=== PATIENT | male | born 1935 | race Caucasian/White ===

== ENCOUNTER 2016-07-27 07:30 | Outpatient (CLI) | payer MEDICARE, OTHER | END 2016-07-27 07:31 | disposition home or self-care (01) | DX: E78.5 Hyperlipidemia, unspecified (principal); I10 Essential (primary) hypertension; Z79.899 Other long term (current) drug therapy; Z85.46 Personal history of malignant neoplasm of prostate ==

== ENCOUNTER 2016-11-23 13:50 | Outpatient (CLI) | payer MEDICARE, OTHER | END 2016-11-23 13:51 | disposition home or self-care (01) | LOC: LAB.WCP 13:50 | PROVIDERS: ATTEND Urology | DX: Z85.46 Personal history of malignant neoplasm of prostate (principal) | CPT/HCPCS: 36415; 84153 ==

== ENCOUNTER 2016-12-18 07:43 | Outpatient (CLI) | payer MEDICARE, OTHER ==
[2016-12-18 08:30] LABS: CHOL/HDL RATIO 3.2 (<5.0); CHOLESTEROL 155 mg/dL; HDL CHOLESTEROL 49 mg/dL; LDL/HDL RATIO 1.7 (<3.6); TRIGLYCERIDES 122 mg/dL; VLDL CHOLESTEROL 24 mg/dL
== END 2016-12-18 07:44 | disposition home or self-care (01) ==
LOC: LAB 07:43
PROVIDERS: ATTEND Family Medicine
DX: E78.5 Hyperlipidemia, unspecified (principal)
CPT/HCPCS: 36415; 80061

== ENCOUNTER 2017-05-30 09:37 | Outpatient (CLI) | payer MEDICARE, OTHER ==
[2017-05-30 14:17] LABS: ALBUMIN 3.8 g/dL (3.2-5.5); ALBUMIN/GLOBULIN RATIO 1.1 (1.0-2.2); BILIRUBIN,TOTAL 0.6 mg/dL (0.2-1.0); CALCIUM 9.1 mg/dL (8.5-10.3); CREATININE 0.8 mg/dL (0.6-1.2); TOTAL PROTEIN 7.3 g/dL (6.7-8.2)
[2017-05-30 14:43] LABS: BASOPHILS % (AUTO) 0.6 %; EOSINOPHILS # (AUTO) 0.2 10^3/uL (0.0-0.7); EOSINOPHILS % (AUTO) 2.9 %; HGB - HEMOGLOBIN 13.3 g/dL (14.0-18.0); LYMPHOCYTES # (AUTO) 1.5 10^3/uL (1.5-3.5); LYMPHOCYTES % (AUTO) 20.1 %; MEAN CORPUSCULAR HEMOGLOBIN 30.3 pg (27.0-31.0); MEAN CORPUSCULAR HGB CONC 34.5 g/dL (32.0-36.0); MEAN CORPUSCULAR VOLUME 87.8 fL (80.0-94.0); MEAN PLATELET VOLUME 7.8 fL (7.4-11.4); MONOCYTES # (AUTO) 0.6 10^3/uL (0.0-1.0); MONOCYTES % (AUTO) 7.5 %; NEUTROPHILS # (AUTO) 5.3 10^3/uL (1.5-6.6); NEUTROPHILS % (AUTO) 68.9 %; PLT - PLATELET COUNT 282 10^3/uL (130-450); RED CELL DISTRIBUTION WIDTH 13.2 % (12.0-15.0); WHITE BLOOD COUNT 7.6 x10^3/uL (4.8-10.8)
== END 2017-05-30 09:38 | disposition home or self-care (01) ==
LOC: LAB.WCP 09:37
PROVIDERS: ATTEND Family Medicine
DX: R53.83 Other fatigue (principal); R63.4 Abnormal weight loss; I10 Essential (primary) hypertension; Z85.46 Personal history of malignant neoplasm of prostate
CPT/HCPCS: 36415; 80053; 82150; 83690; 83735; 84153; 84443; 85025

== ENCOUNTER 2017-06-02 07:18 | Outpatient (CLI) | payer MEDICARE, OTHER ==
[2017-06-02 14:55] LABS: HB2 TOTAL 14.5 g/dL; HEMOGLOBIN A1C 0.69 g/dL; HEMOGLOBIN A1C % 6.5 % (4.6-6.2)
== END 2017-06-02 07:19 ==
LOC: LAB.WCP 07:18
PROVIDERS: ATTEND Family Medicine
DX: R73.01 Impaired fasting glucose (principal)
CPT/HCPCS: 36415; 82947; 83036

== ENCOUNTER 2017-06-09 14:23 | Outpatient (CLI) | payer MEDICARE, OTHER ==
[2017-06-09] MEDS ORDERED: IOPAMIDOL-300 100 ML VIAL ONE (14:25)
[2017-06-09] MEDS ORDERED: IOPAMIDOL-300 50 ML VIAL ONE (14:25)
[2017-06-09] MEDS ORDERED: IOPAMIDOL-300 50 ML VIAL PO ONE (15:40)
[2017-06-09] MEDS ORDERED: IOPAMIDOL-300 100 ML VIAL IVP ONE (15:40)
--- NOTE | 2017-06-10 12:05 | CT Report ---
CT CHEST WITH CONTRAST: 06/09/2017 CLINICAL INDICATION: Weight loss, nausea. TECHNIQUE: Axial CT images of the chest were obtained with 100 mL Isovue 300 intravenously. COMPARISON: No previous chest CT is available for comparison. FINDINGS: The heart and great vessels demonstrate atherosclerotic calcifications. There is an anterior mediastinal mass, measuring 7.5 x 7.0 cm, suspicious for neoplasm. No internal calcifications are seen to suggest teratoma. There is a pulmonary nodule in the left upper lung, which appears to arise from the major fissure, with spiculated margins measuring 3.3 x 2.0 cm, suspicious for either primary lung cancer or metastatic disease. Left basilar atelectasis is present. No pleural effusion or pneumothorax is seen. Mild emphysema is noted. Osseous structures demonstrate degenerative changes. IMPRESSION: A 3.3 CM LEFT UPPER LUNG NODULE, WITH A 7.5 CM ANTERIOR MEDIASTINAL MASS. IT IS UNCERTAIN WHICH OF THESE REPRESENTS THE PRIMARY LESION. CT DOSE REDUCTION STATEMENT In accordance with CT protocol optimization, one or more of the following dose reduction techniques were utilized for this exam: Automated exposure control, adjustment of mA and/or KV based on patient size, or use of iterative reconstructive technique. TD: 06/10/2017 12:04
--- NOTE | 2017-06-10 12:13 | CT Report ---
CT ABDOMEN AND PELVIS WITH CONTRAST: 06/09/2017 CLINICAL INDICATION: Weight loss, nausea. TECHNIQUE: Axial CT images of the abdomen and pelvis were obtained with 100 mL Isovue 300 intravenously as well as oral contrast. COMPARISON: 12/11/2015. FINDINGS: The liver again demonstrates multiple cysts. The spleen, pancreas, kidneys and adrenal glands are unremarkable. The gallbladder is not dilated. No bowel dilatation, free gas, or free fluid is present. No abdominal adenopathy is seen. PELVIS: The pelvic organs appear unremarkable. No pelvic adenopathy or free fluid is present. Osseous structures demonstrate degenerative changes. IMPRESSION: NO EVIDENT ETIOLOGY FOR PATIENT'S WEIGHT LOSS AND NAUSEA. PLEASE SEE CHEST CT REPORT OF THE SAME DAY. CT DOSE REDUCTION STATEMENT In accordance with CT protocol optimization, one or more of the following dose reduction techniques were utilized for this exam: automated exposure control, adjustment of mA and/or KV based on patient size, or use of iterative reconstructive technique. TD: 06/10/2017 12:13
== END 2017-06-09 14:24 | disposition home or self-care (01) ==
LOC: DI 14:23
PROVIDERS: ATTEND Surgery
DX: R91.1 Solitary pulmonary nodule (principal); R91.8 Other nonspecific abnormal finding of lung field
CPT/HCPCS: 71260; 74177; Q9967

== ENCOUNTER 2017-07-12 07:27 | Outpatient (CLI) | payer MEDICARE, OTHER ==
[2017-07-12] MEDS ORDERED: IOPAMIDOL-300 100 ML VIAL ONE (07:59)
[2017-07-12 08:03] LABS: CREATININE 0.8 mg/dL (0.6-1.2)
--- NOTE | 2017-07-12 11:30 | CT Report ---
CT BRAIN WITH AND WITHOUT CONTRAST: 07/12/2017 CLINICAL INDICATION: Lung cancer. TECHNIQUE: Axial CT images of the brain were obtained prior to and following 80 mL Isovue 300 intravenously. COMPARISON: No previous CT is available for comparison. FINDINGS: The ventricles and sulci are normal in size, shape and configuration. The basilar cisterns are patent. There is a 4 mm enhancing nodule arising from the left frontal dura, likely representing a tiny meningioma. No abnormal intraaxial enhancement is seen. No mass lesion or midline shift is present. The visualized orbital contents and paranasal sinuses are unremarkable. 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 NO EVIDENCE OF INTRAAXIAL METASTATIC DISEASE. CT DOSE REDUCTION STATEMENT In accordance with CT protocol optimization, one or more of the following dose reduction techniques were utilized for this exam: automated exposure control, adjustment of mA and/or KV based on patient size, or use of iterative reconstructive technique. TD: 07/12/2017 11:29
[2017-07-12] MEDS ORDERED: IOPAMIDOL-300 100 ML VIAL IVP ONE (12:45)
== END 2017-07-12 07:28 | disposition home or self-care (01) ==
LOC: LAB 07:27
PROVIDERS: ATTEND Surgery
DX: C34.90 Malignant neoplasm of unspecified part of unspecified bronchus or lung (principal)
CPT/HCPCS: 36415; 70470; 82565; Q9967

== ENCOUNTER 2017-08-02 15:34 | Emergency (ER) | payer MEDICARE, OTHER ==
--- NOTE | 2017-08-02 16:11 | ED Physician Documentation ---
PD HPI ABD PAIN - Stated complaint Stated Complaint: ABD PX - Chief complaint Chief Complaint: General - History obtained from History obtained from: Patient - History of Present Illness Timing - onset: Yesterday (cramping intermediate pain.), How many days ago (5 days since last BM. He had taken some stool lacative and has some weeping stool out of the rectum with still feeling of need to use bathroom. He had only gotten small hard stools out of case.) Timing - details: Intermittant, Waxing and waning Quality: Cramping, Aching Location: Suprapubic, Other (rectal area fullness) Radiation: Lower back Improved by: BM (but only smallest hard stools out the past few days.) Associated symptoms: Nausea, Diarrhea (small amounts of watery coming out around presumed impaction on CT.), Constipation. No: Fever, Vomiting Similar symptoms before: Diagnosis (constipation but is not regular problem for him.) Review of Systems Constitutional: denies: Fever, Chills Nose: denies: Rhinorrhea / runny nose, Congestion Cardiac: denies: Chest pain / pressure, Palpitations Respiratory: denies: Dyspnea, Cough : reports: Unable to Void (for the past 12 hours, only little trickles and feels bladder fullness.) PD PAST MEDICAL HISTORY - Past Medical History Cardiovascular: Hypertension, High cholesterol Respiratory: None Endocrine/Autoimmune: None GI: GERD : None HEENT: None Psych: None Musculoskeletal: None Derm: None - Past Surgical History General: Gastric surgery, Colonoscopy, EGD, Other /SKIP TRACER: Other HEENT: Tonsil/Adenoidectomy - Present Medications Home Medications: Ambulatory Orders Medication Instructions Recorded Confirmed Lisinopril 20 mg PO DAILY 05/23/14 08/03/17 Atorvastatin [Lipitor] 1 tab PO DAILY 08/02/17 08/03/17 Ondansetron Odt [Zofran Odt] 1 tab SL Q6HR PRN 08/02/17 08/03/17 Aspirin [Adult Low Dose Aspirin EC] 1 tab PO DAILY 08/03/17 08/03/17 Chaga 420 mg PO DAILY 08/03/17 08/03/17 Dandelion Root 525 mg PO DAILY 08/03/17 08/03/17 Doxylamine Succinate [[place]] 1 tab PO DAILY 08/03/17 08/03/17 Ibuprofen 200 mg PO PRN PRN 08/03/17 08/03/17 Multivitamin [Multiple Vitamins] 1 tab PO DAILY 08/03/17 08/03/17 Psyllium Husk [Fiber] 1 cap PO DAILY 08/03/17 08/03/17 - Allergies Allergies/Adverse Reactions: Allergies Allergy/AdvReac Type Severity Reaction Status Date / Time No Known Drug Allergies Allergy Verified 08/02/17 15:42 - Family History Family history: reports: Non contributory - Immunizations Immunizations are current?: Yes PD ED PE NORMAL - Vitals Vital signs reviewed: Yes - General General: Alert and oriented X 3, No acute distress, Well developed/nourished - HEENT HEENT: Pharynx benign - Neck Neck: Supple, no meningeal sign, No adenopathy - Cardiac Cardiac: RRR, No murmur - Respiratory Respiratory: Clear bilaterally - Abdomen Abdomen: Normal bowel sounds, Soft, Non distended, No organomegaly, Other ( tender lower abd nd fullness suprapubic area. ) - Male Male : Other (normal genitalia. ) - Rectal Rectal: Other (some impacted stool broken up digitally) - Back Back: No CVA TTP Results - Vitals Vitals: Oxygen O2 Source Room air PD MEDICAL DECISION MAKING - ED course Complexity details: re-evaluated patient, considered differential (seems to be constipation and urinary retention related, feeling better with those addressed. ), d/w patient Departure - Departure Disposition: 01 Home, Self Care Clinical Impression: Constipation, Acute urinary retention Condition: Stable Record reviewed to determine appropriate education?: Yes Instructions: ED Constipation, ED Catheter Care Rogers Follow-Up: Evan Matos MD [Primary Care Provider] - Comments: Drink lots of fluids. Usual medications. [place] [facility] [place]. Keep the Rogers catheter in until then. See if they want to remove it tomorrow or other recommendations. The urinary retention may be related to the constipation and so as the constipation is resolving the urination may improve most likely. Discharge Date/Time: 08/02/17 19:29
[2017-08-02] MEDS ORDERED: MINERAL OIL ENEMA 133 ML BOTTLE RC STA (16:44)
[2017-08-02] MEDS ORDERED: ACETAMINOPHEN 325 MG TABLET PO STA (16:51)
[2017-08-02] MEDS ORDERED: SALINE ENEMA 133 ML BOTTLE RC STA (18:19)
[2017-08-02 18:50] VITALS: BP 134/80
== END 2017-08-02 19:29 | disposition home or self-care (01) ==
LOC: ED 15:34
DX: K59.00 Constipation, unspecified (principal); R33.9 Retention of urine, unspecified; I10 Essential (primary) hypertension; Z79.82 Long term (current) use of aspirin
CPT/HCPCS: 51702; 99282; 99283; A9270

== ENCOUNTER 2017-09-06 08:44 | Day surgery (SDC) | payer MEDICARE, OTHER ==
[~2017-09-06 08:44] MED LIST: ceFAZolin 2 GM/50 ML 2 GM/50 ML BAG IV ONE
[2017-09-06] MEDS ORDERED: LACTATED RINGERS 1,000 ML IV ONE (09:29)
[2017-09-06] MEDS ORDERED: BUPIVACAINE 0.5% PF 30 ML VIAL INFIL ONE ×2 (11:08)
[2017-09-06] MEDS ORDERED: MIDAZOLAM 2 MG/2 ML VIAL IVP ONE (11:11)
[2017-09-06] MEDS ORDERED: KETAMINE 500 MG/10 ML VIAL IVP ONE (11:11)
[2017-09-06] MEDS ORDERED: GLYCOPYRROLATE 1 MG/5 ML VIAL IVP ONE (11:11)
[2017-09-06] MEDS ORDERED: PROPOFOL 200 MG/20 ML VIAL IVP ONE (11:11)
--- NOTE | 2017-09-06 11:59 | OPERATIVE REPORT ---
Operative Report - General Procedure Date: 09/06/17 Planned Procedure: Port-A-Cath placement Pre-Op Diagnosis: Stage IV lung cancer Procedure Performed: RIGHT subclavian Port-A-Cath placement Post Op Diagnosis: Same - Procedure Note Primary Surgeon: Jay Alexandra MD Anesthesia Provider: Javier Alas CRNA Anesthesia Technique: Local (12 mL 1/2% marcaine), MAC IV Fluids (mL): 900 Estimated Blood Loss (mL): 1 Complications: None. - Other Other Information/Narrative: OPERATIVE DESCRIPTION/REPORT: After verbal and written informed consent was obtained detailing the risks of infection, bleeding requiring transfusion with its risks, nerve injury, and , and after I met with the patient confirming the surgery and the site of the surgery, the patient was brought to the operative suite and placed supine on the operating table. Great care was taken to avoid pressure points to prevent pressure necrosis or nerve injury. Monitoring devices were applied along with TEDs and pneumatic compressive stockings (to prevent DVT). The patient received preoperative antibiotics for surgical prophylaxis. Javier Alas CRNA sedated and anesthetized the patient for the entire procedure. The patient was prepped and draped in the usual sterile manner. A "time in" then confirmed that the patient was identified with 3 identifiers (name, date and medical record number), the history and physical was in the chart, the signed consent confirming the procedure was in the chart, the patient was in the correct position, the aforementioned prophylactic measures were in place or given, we had the correct personnel and equipment to complete the procedure and that anesthesia, surgery and nursing were given an opportunity to express any concerns. With the agreement of everyone in the room, we proceeded with the operation. After the subclavian region was anesthetized using % marcaine and the patient placed in Trendelenberg position, an Angiodynamics Smartport kit was opened. The finder needle was inserted into the subclavian vein taking great care to place it just under the clavicle in order to minimize the risk of pneumothorax. When good venous blood return was obtained, the wire was placed through the needle and into the vein without difficulty. Fluoroscopy and cardiac irritability confirmed that the catheter was correctly going down towards the heart. Below and lateral to the needle insertion site, the area was anesthetized again using % marcaine and a transverse incision was made just large enough to accommodate the port. This incision was taken down to the fascia using sharp dissection and the area for the port was created using blunt downward dissection. Meticulous hemostasis was obtained using Bovie electrocautery. A knife was inserted along the wire to widen the insertion site and this was further dilated using a Rachael. The port was flushed with heparinized saline and placed in the pouch and the catheter was then passed to the needle opening using the passer. The catheter was then measured against the patients anterior chest and cut so that the tip would lie 2 cm below the manubrial-sternal junction. The port was secured to the fascia using a 3-0 Prolene on the side of the opening of the port. The catheter was then wiped and wrapped with a heparinized soaked 4x4. The dilator and sheath were then carefully inserted over the wire and the dilator and wire withdrawn. The catheter was then inserted into the sheath and the sheath was broken away from the catheter leaving the catheter in place in the vein. Fluoroscopy confirmed placement of the catheter tip in the right atrium/supracardiac vena cava without pneumothorax. Using a Hueber needle the port was accessed and good blood return as well as easy flush was noted. The subcutaneous tissue was approximated using 3-0 Vicryl and the skin incisions were approximated with 4-0 Monocryl in a subcuticular fashion. The skin prep was washed off and prepped with benzoin. Steristrips were applied. At this point a time out was performed that confirmed that all the counts were correct, the procedure that was performed, the blood loss, the IV fluids administered, and the patients condition. A dressing was placed on the wound. Having tolerated the procedure well, the patient was taken to short stay in good and stable condition. An upright portable chest X-ray was obtained and read by me as no pneumothorax and good placement of the Port-A-Cath in the right atrium. The patient was instructed that the Port-A-Cath could be used immediately.
[2017-09-06 12:08] VITALS: BP 138/77
--- NOTE | 2017-09-06 12:10 | XRAY Report ---
FLUOROSCOPIC ASSISTANCE: 09/06/2017 FINDINGS/IMPRESSION: Fluoroscopic assistance is provided for port placement. 0.4 minutes of fluoroscopy time are used. No images are obtained. TD: 09/06/2017 11:51
--- NOTE | 2017-09-06 13:02 | XRAY Report ---
PORTABLE CHEST: 09/06/2017 HISTORY: Line placement. COMPARISON: Chest CT 06/09/2017 and chest x-ray 01/14/2017. FINDINGS: There is a right Port-A-Cath with its tip at the cavoatrial junction. No pneumothorax is seen. Mediastinal/left hilar mass, as before. Hypoventilatory changes at the lung bases. No effusions. IMPRESSION: NO UNEXPECTED FINDING STATUS POST PORT-A-CATH PLACEMENT. TD: 09/06/2017 12:22
== END 2017-09-06 08:45 | disposition home or self-care (01) ==
LOC: SDS 08:44
PROVIDERS: ATTEND Surgery
PROC: 02H633Z Insertion of Infusion Device into Right Atrium, Percutaneous Approach (ICD-10-PCS; 2017-09-06)
PROC: 0JH60WZ Insertion of Totally Implantable Vascular Access Device into Chest Subcutaneous Tissue and Fascia, Open Approach (ICD-10-PCS; principal; 2017-09-06 09:45)
DX: C34.90 Malignant neoplasm of unspecified part of unspecified bronchus or lung (principal); I10 Essential (primary) hypertension; K21.9 Gastro-esophageal reflux disease without esophagitis; E78.5 Hyperlipidemia, unspecified; M10.9 Gout, unspecified; M19.90 Unspecified osteoarthritis, unspecified site
CPT/HCPCS: 36561; C1788; J0690; J7120; 71045

== ENCOUNTER 2017-10-25 08:40 | Outpatient (CLI) | payer MEDICARE, OTHER | END 2017-10-25 08:41 | LOC: LAB.WCP 08:40 | PROVIDERS: ATTEND Urology | DX: Z85.46 Personal history of malignant neoplasm of prostate (principal); Z90.79 Acquired absence of other genital organ(s) | CPT/HCPCS: 36415; 84153 ==

== ENCOUNTER 2018-02-16 07:32 | Day surgery (SDC) | payer MEDICARE, OTHER ==
[~2018-02-16 07:32] MED LIST changes: +CYCLOPENTOLATE 1% OPHTH DROPS 2 ML ONE; +KETOROLAC 0.45% OPHTH DROPS ONE; +PHENYLEPHRINE 2.5% OPHTH 2 ML DROPS ONE; +PROPARACAINE 0.5% OPHTH DROPS 15 ML ONE; -ceFAZolin 2 GM/50 ML 2 GM/50 ML BAG IV ONE
[2018-02-16] MEDS ORDERED: LACTATED RINGERS 500 ML IV ONE (07:37)
[2018-02-16] MEDS ORDERED: KETOROLAC 0.45% OPHTH DROPS RIGHTEYE ONE (07:48)
[2018-02-16] MEDS ORDERED: PROPARACAINE 0.5% OPHTH DROPS 15 ML RIGHTEYE ONE ×2 (07:48→08:51)
[2018-02-16] MEDS ORDERED: CYCLOPENTOLATE 1% OPHTH DROPS 2 ML RIGHTEYE ONE (07:48)
[2018-02-16] MEDS ORDERED: PHENYLEPHRINE 2.5% OPHTH 2 ML DROPS RIGHTEYE ONE (07:48)
--- NOTE | 2018-02-16 08:22 | ANESTHESIA ---
Pre-Anesthesia VS, & Labs - Diagnosis Right eye senile combined cataract - Procedure Laser assisted extraction of cataract with IOL implant right eye Vital Signs: Temp Pulse Resp BP Pulse Ox 36.5 C 64 16 141/68 H 99 02/16/18 07:37 02/16/18 07:37 02/16/18 07:37 02/16/18 07:37 02/16/18 07:37 Height 6 ft Weight (kg) 74.8 kg Body Mass Index 22.4 - NPO >8 hours Home Medications and Allergies Lisinopril 20 mg PO DAILY 05/23/14 Atorvastatin [Lipitor] 1 tab PO DAILY 08/02/17 Chaga 420 mg PO DAILY 08/03/17 Dandelion Root 525 mg PO DAILY 08/03/17 Multivitamin [Multiple Vitamins] 1 tab PO DAILY 08/03/17 Psyllium Husk [Fiber] 1 cap PO DAILY 08/03/17 Allergies/Adverse Reactions: Allergies Allergy/AdvReac Type Severity Reaction Status Date / Time No Known Drug Allergies Allergy Verified 01/18/18 09:11 Anes History & Medical History - Anesthetic History Anesthesia Complications: reports: No previous complications - Medical History Cardiovascular: reports: Hypertension, High cholesterol Pulmonary: reports: Other (Lung cancer) Gastrointestinal: reports: Chronic constipation, Other Urinary: reports: Benign prostate hypertrophy Neuro: reports: None Musculoskeletal: reports: None Endocrine/Autoimmune: reports: None Blood Disorders: reports: None Skin: reports: Eczema Smoking Status: Former smoker (Quit 39 years ago) Psychosocial: reports: Alcohol (3 beers every night) - Surgical History General: Gastric surgery, Colonoscopy, EGD, Other Eyes Ears Nose Throat (EENT): Tonsil/Adenoidectomy Urologic: Prostatic surgery Gynecologic: Other Exam General: Alert, Oriented x3, Cooperative, No acute distress Dental: Poor dentition (Significant over bite) Mouth Openin Fingerbreadth Neck Mobility: Normal Mallampati classification: II Thyromental Distance: 4-6 cm Respiratory: Lungs clear, Normal breath sounds, No respiratory distress, No accessory muscle use Cardiovascular: Regular rate, Normal S1, Normal S2, No murmurs Mental/Cognitive Status: Alert/Oriented X3, Normal for patient Cognitive Status: Within normal limits Plan Anesthesia Type: MAC Consent for Procedure(s) Verified and Reviewed: Yes Code Status: Attempt Resuscitation ASA classification: 3-Severe systemic disease Is this case an emergency?: No
[2018-02-16] MEDS ORDERED: BRIMONIDINE 0.2% OPHTH DROPS 5 ML OPTH ONE (08:50)
[2018-02-16] MEDS ORDERED: EPINEPHrine 1 MG/ML AMP IVP ONE (08:50)
[2018-02-16] MEDS ORDERED: TIMOLOL 0.5% OPHTH DROPS OPTH ONE (08:50)
[2018-02-16] MEDS ORDERED: CHONDR SULF/HYALURONATE SYRINGE IO ONE (08:50)
[2018-02-16] MEDS ORDERED: BSS/LIDOCAINE/EPINEPHRINE 1 ML SYRINGE IO ONE (08:51)
[2018-02-16] MEDS ORDERED: TRIAMCIN/MOXIFLOX OPHTHALMIC 0.6 ML VIAL IO ONE (08:54)
[2018-02-16] MEDS ORDERED: VANCOMYCIN OPHTHALMI 8MG/0.8ML 8 MG/0.8 ML SYRINGE IO ONE ×2 (08:55)
[2018-02-16] MEDS ORDERED: MIDAZOLAM 2 MG/2 ML VIAL IVP ONE (09:00)
[2018-02-16 09:20] VITALS: BP 134/80
[2018-02-16] MEDS ORDERED: SODIUM CHLORIDE FLUSH 0.9% 10 ML SYRINGE ONE (09:35)
--- NOTE | 2018-02-16 11:36 | OPERATIVE REPORT ---
DATE OF SERVICE: 02/16/2018 Physician: Michael Guzman MD PREOPERATIVE DIAGNOSIS: Visually significant cataract, right eye. This was his first cataract surge ry. POSTOPERATIVE DIAGNOSIS: Visually significant cataract, right eye. PROCEDURE: Phacoemulsification with posterior chamber intraocular lens implant, right eye, with lase r assist. SURGEON: Dr. Michael Guzman. ANESTHESIA: Monitored anesthesia care. COMPLICATIONS: None. OPERATIVE INDICATIONS: This is an 82-year-old man with progressive vision loss in the right eye due to 3+ nuclear sclerotic and 1+ cortical cataract. Best corrected visual acuity was 20/30 with glare to 20/60 in the right eye. Indications for surgery were overall decrease in vision, difficulty reading, and difficulty tracking a golf ball. He was consented at length concerning risks and benefits of cataract surgery, after whi ch he expressed a desire to proceed with surgery. OPERATIVE PROCEDURE: Patient was taken into OR #3 and placed under monitored anesthesia care. A twin gical timeout was conducted confirming correct patient, correct procedure, and correct surgical site. He was placed in the LenSx laser and his eye docked to laser interface. The laser performed the ca psulotomy, lens softening and arcuate keratotomy incisions. Phaco wounds were manual, as there was a conflict between arcuate keratotomy incisions and phaco [TIME: 01:23]. He was then moved to [facility] operating microscope, given topical anesthesia, then prepped and draped in the usual sterile fashi on. The eye was entered at the 12 and 9 o'clock positions. Intracameral Shugarcaine was injected into th e anterior chamber, followed by Viscoat. The capsulorrhexis flap created by the LenSx laser was larissa catalina from the anterior chamber. The nucleus was hydrodissected and phacoemulsified. The cortex was e vacuated using automated infusion and aspiration. Provisc was injected in the capsular bag, and a 22 .5 diopter intraocular lens inserted in the bag. Approximately 0.8 mL of a mixture of triamcinolone, moxifloxacin, and vancomycin was injected subconjunctivally in the superior quadrant for infection a nd inflammation prophylaxis. I and A was used to evacuate the viscoelastic materials. The eye was i nflated to physiologic pressure using a balanced salt solution and found to be watertight. Patient w as taken from the operating room in good condition and given postop instructions. TD: 02/16/2018 09:28
== END 2018-02-16 07:33 | disposition home or self-care (01) ==
LOC: SDS 07:32
PROVIDERS: ATTEND Ophthalmology
PROC: 08RJ3JZ Replacement of Right Lens with Synthetic Substitute, Percutaneous Approach (ICD-10-PCS; principal; 2018-02-16 08:30)
DX: H25.811 Combined forms of age-related cataract, right eye (principal); I10 Essential (primary) hypertension; C34.90 Malignant neoplasm of unspecified part of unspecified bronchus or lung; N40.0 Benign prostatic hyperplasia without lower urinary tract symptoms; Z87.891 Personal history of nicotine dependence
CPT/HCPCS: 66984; A9270; J3490; V2632

== ENCOUNTER 2018-03-07 08:00 | Outpatient (CLI) | payer MEDICARE, OTHER ==
[2018-03-07 12:36] LABS: EOSINOPHILS # (AUTO) 0.1 10^3/uL (0.0-0.7); EOSINOPHILS % (AUTO) 2.3 %; HGB - HEMOGLOBIN 14.7 g/dL (14.0-18.0); LYMPHOCYTES # (AUTO) 0.9 10^3/uL (1.5-3.5); LYMPHOCYTES % (AUTO) 19.4 %; MEAN CORPUSCULAR HEMOGLOBIN 30.7 pg (27.0-31.0); MEAN CORPUSCULAR HGB CONC 34.7 g/dL (32.0-36.0); MEAN CORPUSCULAR VOLUME 88.7 fL (80.0-94.0); MEAN PLATELET VOLUME 7.7 fL (7.4-11.4); MONOCYTES # (AUTO) 0.5 10^3/uL (0.0-1.0); MONOCYTES % (AUTO) 11.4 %; NEUTROPHILS % (AUTO) 65.9 %; PLT - PLATELET COUNT 231 10^3/uL (130-450); RED BLOOD COUNT 4.77 10^6/uL (4.70-6.10); RED CELL DISTRIBUTION WIDTH 13.9 % (12.0-15.0); WHITE BLOOD COUNT 4.6 x10^3/uL (4.8-10.8)
[2018-03-07 12:50] LABS: ALBUMIN 4.3 g/dL (3.2-5.5); BILIRUBIN,DIRECT 0.1 mg/dL (0.1-0.5); BILIRUBIN,TOTAL 0.8 mg/dL (0.2-1.0); CREATININE 0.8 mg/dL (0.6-1.2); TOTAL PROTEIN 7.3 g/dL (6.7-8.2)
== END 2018-03-07 23:59 | disposition home or self-care (01) ==
LOC: LAB.WCP 08:00
PROVIDERS: ATTEND Podiatrist
DX: B35.1 Tinea unguium (principal); B35.3 Tinea pedis
CPT/HCPCS: 36415; 80076; 82565; 84520; 85025

== ENCOUNTER 2018-05-22 08:26 | Outpatient (CLI) | payer MEDICARE, OTHER | END 2018-05-22 08:27 | disposition home or self-care (01) | LOC: LAB.WCP 08:26 | PROVIDERS: ATTEND Urology | DX: Z85.46 Personal history of malignant neoplasm of prostate (principal) | CPT/HCPCS: 36415; G0103; 84153 ==

== ENCOUNTER 2018-07-07 09:21 | Outpatient (CLI) | payer MEDICARE, OTHER ==
--- NOTE | 2018-07-07 10:56 | XRAY Report ---
Reason: LOW BACK PAIN,SQUAMOUS CELL CA,RT HIP PAIN Procedure Date: 07/07/2018 Accession Number: [id number] / [id number] Procedure: XR - Lumbar Spine 2 View CPT Code: FULL RESULT: EXAM: LUMBOSACRAL SPINE RADIOGRAPHY EXAM DATE: 07/07/2018 09:27 AM. CLINICAL HISTORY: Low back pain, squamous cell CA, right hip pain. COMPARISONS: None. TECHNIQUE: 3 views. FINDINGS: Alignment: Normal. No spondylolisthesis or scoliosis. Bones: Five [id number]-[id number] lumbar vertebral bodies are present. No fractures or bone lesions. Disks: Mild disk space narrowing at L5-S1. Minor anterior marginal osteophyte L1-L2, L3-L4 and L5-S1. Mild right lateral osteophyte at L2-L3. Facets: Mild degenerative facet changes at L4-L5 and L5-S1. Sacroiliac Joints: Unremarkable. Soft Tissues: Multiple vascular clips are noted in the pelvis. IMPRESSION: Mild degenerative changes. No fracture. RADIA
--- NOTE | 2018-07-07 11:23 | XRAY Report ---
Reason: LOW BACK PAIN,SQUAMOUS CELL CA,RT HIP PAIN Procedure Date: 07/07/2018 Accession Number: [id number] / [id number] Procedure: XR - Hip w/Pelvis 2-3V RT CPT Code: FULL RESULT: EXAM: RIGHT HIP RADIOGRAPHY EXAM DATE: 07/07/2018 09:27 AM. CLINICAL HISTORY: Low back pain, squamous cell CA, right hip pain. COMPARISON: None. TECHNIQUE: 2 views. FINDINGS: Bones: Normal. No fractures or bone lesion. Joints: Normal. No dislocation. The hip joint space is preserved. Soft Tissues: Multiple vascular clips are noted in the pelvis from prior surgery. IMPRESSION: Normal hip radiography. RADIA
== END 2018-07-07 09:22 | disposition home or self-care (01) ==
LOC: DI 09:21
PROVIDERS: ATTEND Family Medicine
DX: M47.9 Spondylosis, unspecified (principal); M25.551 Pain in right hip; M51.36 Other intervertebral disc degeneration, lumbar region; M51.37 Other intervertebral disc degeneration, lumbosacral region; C34.90 Malignant neoplasm of unspecified part of unspecified bronchus or lung
CPT/HCPCS: 72100

== ENCOUNTER 2018-07-15 08:44 | Outpatient (CLI) | payer MEDICARE, OTHER ==
[2018-07-15] MEDS ORDERED: GADOBUTROL 7.5 MMOL/7.5 ML VIAL ONE (09:09)
[2018-07-15] MEDS ORDERED: GADOBUTROL 7.5 MMOL/7.5 ML VIAL IVP ONE (09:50)
--- NOTE | 2018-07-16 16:47 | MRI Report ---
Reason: LOW BACK PAIN Procedure Date: 07/15/2018 Accession Number: [id number] / [id number] Procedure: MRI - Lumbar Spine W/WO CPT Code: FULL RESULT: EXAM: MRI LUMBAR SPINE WITHOUT AND WITH CONTRAST EXAM DATE: 07/15/2018 09:58 AM. CLINICAL HISTORY: Low back pain. Metastatic lung cancer. COMPARISONS: LUMBAR SPINE 2 VIEW 07/07/2018 9:27 AM. TECHNIQUE: Multiplanar, multisequence T1-weighted and fluid-sensitive sequences of the lumbar spine from T12 to S1 before and after administration of intravenous contrast. Other: None. IV contrast: 7.5 cc Gadavist. FINDINGS: Neurologic Structures: The conus terminates at T12. The conus medullaris and cauda equina are unremarkable. Alignment: 2 mm anterior subluxation L4 on L5. Minimal posterior subluxation L5 on S1. Otherwise normal alignment. Bone Marrow: Five wgm-wlq-[id number] lumbar vertebral bodies are assumed. Large predominantly high T2 signal lesion at the L2 vertebral body most consistent with atypical hemangioma. Similar signal intensity lesion at the S1 level. No destructive bone lesion identified. Disk Levels/Facets: T12-L1: Unremarkable. L1-L2: UNREMARKABLE. L2-L3: Mild disk height loss with slight annular disk bulge and mild facet arthropathy. Mild effacement of the thecal sac. Mild inferior foraminal narrowing. L3-L4: Mild disk dehydration. Annular disk bulge and mild facet arthropathy. Mild central canal stenosis. Mild right greater than left foraminal stenosis. L4-L5: Mild disk height loss and dehydration. Grade 1 spondylolisthesis with moderate facet arthropathy. Small annular disk bulge. Mild central canal stenosis. Right lateral recess stenosis. Moderate right and mild left foraminal stenosis. L5-S1: Disk height loss. Annular disk bulge and mild facet arthropathy. Moderate bilateral foraminal stenosis. Spinal Canal: No enhancing masses within the spinal canal. No epidural abscess. Musculature: Unremarkable. Other: Unremarkable. IMPRESSION: 1. Mild lumbar degenerative disk changes and mild to moderate degenerative facet arthropathy. 2. Grade 1 L4-L5 degenerative spondylolisthesis. 3. L3-L4 mild central canal stenosis. Mild right greater than left foraminal stenosis. 4. L4-L5 mild central canal stenosis. Moderate right and mild left foraminal stenosis. 5. L5-S1 moderate bilateral foraminal stenosis. Comment: The following findings are so common in adults without low back pain that while we report their presence, they must be interpreted with caution and in the context of the clinical situation. (Reference Marissak et al, Spine 2001) Prevalence of findings in patients without low back pain: Disk degeneration (any evidence): 92% Disk desiccation/T2 signal loss: 83% Disk height loss: 56% Disk bulge: 64% Disk protrusion: 32% Annular tear/high intensity zone: 38% RADIA
== END 2018-07-15 08:45 | disposition home or self-care (01) ==
LOC: DI 08:44
PROVIDERS: ATTEND Family Medicine
DX: M51.36 Other intervertebral disc degeneration, lumbar region (principal); M48.061 Spinal stenosis, lumbar region without neurogenic claudication; M43.16 Spondylolisthesis, lumbar region
CPT/HCPCS: 72158; A9585

== ENCOUNTER 2018-11-24 08:00 | Outpatient (CLI) | payer MEDICARE, OTHER | END 2018-11-24 23:59 | disposition home or self-care (01) | LOC: LAB.WCP 08:00 | PROVIDERS: ATTEND Urology | DX: C61 Malignant neoplasm of prostate (principal) | CPT/HCPCS: 36415; 84153 ==

== ENCOUNTER 2019-05-30 09:13 | Outpatient (CLI) | payer MEDICARE, OTHER | END 2019-05-30 23:59 | disposition home or self-care (01) | LOC: LAB.WCP 09:13 | PROVIDERS: ATTEND Urology | DX: C61 Malignant neoplasm of prostate (principal) | CPT/HCPCS: 36415; 84153 ==

== ENCOUNTER → 2020-03-11 | Outpatient (CLI) | payer MEDICARE, OTHER | LOC: LAB.WCP 08:00 | PROVIDERS: ATTEND Radiology Radiation Oncology | DX: Z85.46 Personal history of malignant neoplasm of prostate (principal) | CPT/HCPCS: 36415; 84153 ==

== ENCOUNTER 2020-04-01 19:55 | Outpatient (CLI) | payer MEDICARE, OTHER | END 2020-04-01 19:56 | disposition home or self-care (01) | LOC: COV 19:55 | PROVIDERS: ATTEND Internal Medicine Gastroenterology | DX: Z01.812 Encounter for preprocedural laboratory examination (principal); R19.4 Change in bowel habit; R19.8 Other specified symptoms and signs involving the digestive system and abdomen; Z86.010 Personal history of colon polyps; Z20.828 Contact with and (suspected) exposure to other viral communicable diseases ==

== ENCOUNTER 2020-05-26 16:55 | Outpatient (CLI) | payer MEDICARE, OTHER | END 2020-05-26 16:56 | disposition home or self-care (01) | LOC: COV 16:55 | PROVIDERS: ATTEND Ophthalmology | DX: Z01.812 Encounter for preprocedural laboratory examination (principal); H25.812 Combined forms of age-related cataract, left eye; Z20.822 Contact with and (suspected) exposure to COVID-19 ==

== ENCOUNTER 2020-05-29 06:35 | Day surgery (SDC) | payer MEDICARE, OTHER ==
[~2020-05-29 06:35] MED LIST changes: -CYCLOPENTOLATE 1% OPHTH DROPS 2 ML ONE
[2020-05-29] MEDS ORDERED: LACTATED RINGERS 500 ML IV ONE (06:43)
[2020-05-29] MEDS ORDERED: TRIAMCIN/MOXIFLOX OPHTHALMIC 0.6 ML VIAL IO ONE ×2 (07:07→07:30)
[2020-05-29] MEDS ORDERED: TIMOLOL 0.5% OPHTH DROPS ONE (07:07)
[2020-05-29] MEDS ORDERED: BSS/LIDOCAINE/EPINEPHRINE 1 ML SYRINGE ONE (07:07)
[2020-05-29] MEDS ORDERED: BRIMONIDINE 0.2% OPHTH DROPS 5 ML ONE (07:07)
[2020-05-29] MEDS ORDERED: VANCOMYCIN OPHTHALMI 8MG/0.8ML 8 MG/0.8 ML SYRINGE IO ONE ×2 (07:07→07:30)
[2020-05-29] MEDS ORDERED: EPINEPHrine 1 MG/ML AMP ONE (07:07)
--- NOTE | 2020-05-29 07:12 | ANESTHESIA ---
Pre-Anesthesia VS, & Labs - Diagnosis left cataract - Procedure L PhacoIOL Vital Signs: Temp Pulse Resp BP Pulse Ox 36 C L 72 16 150/82 H 98 05/29/20 06:46 05/29/20 06:46 05/29/20 06:46 05/29/20 06:46 05/29/20 06:46 Height: 6 ft 1 in Weight (kg): 83 kg Body Mass Index: 24.1 BMI Classification: Healthy weight - NPO >8 hours Home Medications and Allergies Home Medications: Ambulatory Orders Cevimeline HCl [Evoxac] 30 mg PO DAILY 05/28/20 Lisinopril 20 mg PO DAILY 05/23/14 Atorvastatin [Lipitor] 1 tab PO DAILY 08/02/17 Chaga 420 mg PO DAILY 08/03/17 Dandelion Root 525 mg PO DAILY 08/03/17 Multivitamin [Multiple Vitamins] 1 tab PO DAILY 08/03/17 Psyllium Husk [Fiber] 1 cap PO DAILY 08/03/17 Cevimeline HCl [Evoxac] 30 mg PO DAILY 05/28/20 Allergies/Adverse Reactions: Allergies Allergy/AdvReac Type Severity Reaction Status Date / Time No Known Drug Allergies Allergy Verified 01/30/20 13:52 Anes History & Medical History - Anesthetic History Family history of Anesthesia Complications: Denies Family history of Malignant Hyperthermia: Denies - Medical History Cardiovascular: reports: Hypertension, High cholesterol Pulmonary: reports: Other Gastrointestinal: reports: Chronic constipation, Other Urinary: reports: Benign prostate hypertrophy Neuro: reports: None Musculoskeletal: reports: None Endocrine/Autoimmune: reports: None Blood Disorders: reports: None Skin: reports: Eczema Smoking Status: Former smoker - Surgical History General: reports: Gastric surgery, Colonoscopy, EGD, Other Eyes Ears Nose Throat (EENT): reports: Cataracts, Tonsil/Adenoidectomy Urologic: reports: Prostatic surgery Gynecologic: reports: Other Exam Dental: WNL Mouth Openin Fingerbreadth Neck Mobility: Normal Mallampati classification: II Thyromental Distance: 4-6 cm Plan Anesthesia Type: MAC Consent for Procedure(s) Verified and Reviewed: Yes Code Status: Attempt Resuscitation ASA classification: 2-Mild systemic disease Is this case an emergency?: No
[2020-05-29] MEDS ORDERED: MIDAZOLAM 2 MG/2 ML VIAL ONE (07:25)
[2020-05-29] MEDS ORDERED: BSS/LIDOCAINE/EPINEPHRINE 1 ML SYRINGE IO ONE (07:29)
[2020-05-29] MEDS ORDERED: TIMOLOL 0.5% OPHTH DROPS OPTH ONE (07:29)
[2020-05-29] MEDS ORDERED: EPINEPHrine 1 MG/ML AMP IR ONE (07:29)
[2020-05-29] MEDS ORDERED: BRIMONIDINE 0.2% OPHTH DROPS 5 ML OPTH ONE (07:29)
[2020-05-29] MEDS ORDERED: CHONDR SULF/HYALURONATE SYRINGE IO ONE (07:29)
[2020-05-29] MEDS ORDERED: PROPARACAINE 0.5% OPHTH DROPS 15 ML EACHEYE ONE (07:30)
[2020-05-29] MEDS ORDERED: ATROPINE ABBOJECT 1 MG/10 ML SYRINGE IVP PRN (07:40)
[2020-05-29] MEDS ORDERED: ONDANSETRON 4 MG/2 ML VIAL IVP PRN (07:40)
[2020-05-29] MEDS ORDERED: NALOXONE 0.4 MG/ML VIAL IVP PRN (07:40)
[2020-05-29] MEDS ORDERED: fentaNYL 100 MCG/2 ML VIAL IVP PRN (07:40)
[2020-05-29] MEDS ORDERED: HYDROmorphone 0.5 MG/0.5 ML SYRINGE IVP PRN (07:40)
[2020-05-29] MEDS ORDERED: ePHEDrine 50 MG/ML VIAL IVP PRN (07:40)
[2020-05-29] MEDS ORDERED: METOCLOPRAMIDE 10 MG/2 ML VIAL IVP PRN (07:40)
[2020-05-29] MEDS ORDERED: MORPHINE 2 MG/ML CARPUJECT IVP PRN (07:40)
[2020-05-29] MEDS ORDERED: LACTATED RINGERS 450 ML IV ONE (07:42)
[2020-05-29 07:44] VITALS: BP 124/68
[2020-05-29] MEDS ORDERED: LACTATED RINGERS 1,000 ML IV SCH (08:00)
--- NOTE | 2020-05-29 09:03 | PROCEDURE REPORT ---
DATE OF SERVICE: 05/29/2020 Physician: Michael Guzman MD PREOPERATIVE DIAGNOSIS: Visually significant cataract, left eye. Cataract surgery was performed on the right eye on 02/16/2018. POSTOPERATIVE DIAGNOSIS: Visually significant cataract, left eye. Cataract surgery was performed on the right eye on 02/16/2018. PROCEDURE: Phacoemulsification with posterior chamber intraocular lens implant, left eye. SURGEON: Micheal Guzman MD ANESTHESIA: Monitored anesthesia care. COMPLICATIONS: None. 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 Best corrected visual acuity was 20/30, with glare to light perception vision. INDICATIONS FOR SURGERY: Overall decrease in vision, difficulty with glare or bright lights, and difficulty tracking a golf ball. He was consented at length concerning risks and benefits of cataract surgery, after which he expressed a desire to proceed with surgery. OPERATIVE PROCEDURE: The patient was taken into OR #3 and placed under monitored anesthesia care. A surgical timeout was conducted, confirming correct patient, correct procedure, and correct surgical site. He was given topical anesthesia, and prepped and draped in the usual sterile fashion. The eye was entered at the 6 and 3 o'clock positions. Intracameral Shugarcaine was injected into the anterior chamber, followed by Viscoat. A continuous-tear curvilinear capsulorrhexis was performed. The nucleus was hydrodissected and phacoemulsified. The cortex was evacuated using automated infusion and aspiration. Provisc was injected in the capsular bag, and a 23.5 diopter intraocular lens inserted in the bag. Infusion and aspiration were used to evacuate the viscoelastic materials. The eye was inflated to physiologic pressure using balanced salt solution and found to be watertight. Approximately 0.25 mL of a mixture of triamcinolone and moxifloxacin was injected transsclerally into the vitreous in inferotemporal quadrant. An additional 0.55 mL of a mixture of triamcinolone, moxifloxacin, and vancomycin was injected subconjunctivally in the superior quadrant for infection and inflammation prophylaxis. Wound integrity was checked with Weck-Karen sponges. The patient was taken from the operating room in good condition and given postoperative instructions. TD: 05/29/2020 07:51 MORELIA
--- NOTE | 2020-05-29 10:05 | ANESTHESIA POST OP EVALUATION ---
Anesthesia Post Eval - Post Anesthesia Eval Vitals: Last Vital Signs Temp 36.1 C L 05/29/20 07:42 Pulse 66 05/29/20 07:42 Resp 16 05/29/20 07:42 BP 124/68 05/29/20 07:42 Pulse Ox 100 05/29/20 07:42 CV Function Including HR & BP: positive: Stable Pain Control: positive: Satisfactory Nausea & Vomiting: positive: Negative Mental Status: positive: Baseline Respiratory Status: Airway Patent Hydration Status: Satisfactory Anesthesia Complications: positive: None
== END 2020-05-29 06:36 | disposition home or self-care (01) ==
LOC: SDS 06:35
PROVIDERS: ATTEND Ophthalmology
DX: H25.812 Combined forms of age-related cataract, left eye (principal); C61 Malignant neoplasm of prostate; I10 Essential (primary) hypertension; K21.9 Gastro-esophageal reflux disease without esophagitis; Z98.41 Cataract extraction status, right eye; Z87.891 Personal history of nicotine dependence
CPT/HCPCS: 66984; A9270; J3490; J7120

== ENCOUNTER 2020-06-02 08:19 | Outpatient (CLI) | payer MEDICARE, OTHER ==
[2020-06-02 11:42] LABS: EOSINOPHILS # (AUTO) 0.1 10^3/uL (0.0-0.7); EOSINOPHILS % (AUTO) 2.8 %; HCT - HEMATOCRIT 40.5 % (42.0-52.0); HGB - HEMOGLOBIN 13.5 g/dL (14.0-18.0); LYMPHOCYTES # (AUTO) 0.8 10^3/uL (1.5-3.5); MEAN CORPUSCULAR HEMOGLOBIN 31.8 pg (27.0-31.0); MEAN CORPUSCULAR HGB CONC 33.3 g/dL (32.0-36.0); MEAN CORPUSCULAR VOLUME 95.3 fL (80.0-94.0); MEAN PLATELET VOLUME 9.6 fL (7.4-11.4); MONOCYTES # (AUTO) 0.5 10^3/uL (0.0-1.0); MONOCYTES % (AUTO) 12.9 %; NEUTROPHILS # (AUTO) 2.4 10^3/uL (1.5-6.6); NEUTROPHILS % (AUTO) 61.3 %; PLT - PLATELET COUNT 207 10^3/uL (130-450); RED BLOOD COUNT 4.25 10^6/uL (4.70-6.10); RED CELL DISTRIBUTION WIDTH 12.7 % (12.0-15.0)
[2020-06-02 12:02] LABS: ALBUMIN 4.2 g/dL (3.2-5.5); ALBUMIN/GLOBULIN RATIO 1.3 (1.0-2.2); ALKALINE PHOSPHATASE 69 IU/L (42-121); ALT ALANINE AMINOTRANSFERASE 17 IU/L (10-60); AST ASPARTATE AMINOTRANSFERASE 16 IU/L (10-42); BILIRUBIN,TOTAL 0.7 mg/dL (0.2-1.0); BUN - BLOOD UREA NITROGEN 18 mg/dL (6-20); CALCIUM 9.6 mg/dL (8.5-10.3); CARBON DIOXIDE - CO2 28 mmol/L (21-32); CHLORIDE 100 mmol/L (101-111); CHOL/HDL RATIO 3.5 (<5.0); CHOLESTEROL 166 mg/dL; CREATININE 0.8 mg/dL (0.6-1.2); GFR - MDRD 92 (>89); GLUCOSE 117 mg/dL (70-100); HDL CHOLESTEROL 47 mg/dL; LDL CHOLESTEROL,CALCULATED 84 mg/dL; LDL/HDL RATIO 1.8 (<3.6); POTASSIUM 4.4 mmol/L (3.5-5.0); SODIUM 139 mmol/L (135-145); TOTAL PROTEIN 7.4 g/dL (6.7-8.2); TRIGLYCERIDES 177 mg/dL; VLDL CHOLESTEROL 35 mg/dL
[2020-06-02 12:10] LABS: THYROID STIMULATING HORMONE 1.32 uIU/mL (0.34-5.60)
[2020-06-02 12:42] LABS: ESTIMATED AVERAGE GLUCOSE 114 mg/dL (70-100); HEMOGLOBIN A1c% 5.6 % (4.27-6.07)
== END 2020-06-02 08:20 | disposition home or self-care (01) ==
LOC: LAB.N 08:19
PROVIDERS: ATTEND Family Medicine
DX: C34.90 Malignant neoplasm of unspecified part of unspecified bronchus or lung (principal); E11.9 Type 2 diabetes mellitus without complications; E78.5 Hyperlipidemia, unspecified; I10 Essential (primary) hypertension; Z85.46 Personal history of malignant neoplasm of prostate
CPT/HCPCS: 36415; 80053; 80061; 83036; 83721; 84443; 85025

== ENCOUNTER 2020-09-16 07:32 | Outpatient (CLI) | payer MEDICARE, OTHER | END 2020-09-16 07:33 | disposition home or self-care (01) | LOC: LAB.N 07:32 | PROVIDERS: ATTEND Family Medicine | DX: C61 Malignant neoplasm of prostate (principal) | CPT/HCPCS: 36415; 84153 ==

== ENCOUNTER 2021-03-16 14:08 | Outpatient (CLI) | payer MEDICARE, OTHER | END 2021-03-16 14:09 | disposition home or self-care (01) | LOC: LAB.N 14:08 | PROVIDERS: ATTEND Urology | DX: C61 Malignant neoplasm of prostate (principal) | CPT/HCPCS: 36415; 84153 ==

== ENCOUNTER 2021-08-27 14:04 | Outpatient (CLI) | payer MEDICARE, OTHER | END 2021-08-27 14:05 | disposition home or self-care (01) | LOC: LAB.N 14:04 | PROVIDERS: ATTEND Urology | DX: C61 Malignant neoplasm of prostate (principal) | CPT/HCPCS: 36415; 84153 ==

== ENCOUNTER 2022-01-25 15:04 | Outpatient (CLI) | payer MEDICARE, OTHER | END 2022-01-25 15:05 | disposition home or self-care (01) | LOC: LAB.N 15:04 | PROVIDERS: ATTEND Radiology Radiation Oncology | DX: C61 Malignant neoplasm of prostate (principal) | CPT/HCPCS: 36415; 84153 ==

== ENCOUNTER 2022-03-18 06:36 | Emergency (ER) | payer MEDICARE, OTHER ==
[2022-03-18 07:09] LABS: BASOPHILS % (AUTO) 0.4 %; EOSINOPHILS # (AUTO) 0.1 10^3/uL (0.0-0.7); EOSINOPHILS % (AUTO) 2.3 %; HCT - HEMATOCRIT 37.2 % (42.0-52.0); HGB - HEMOGLOBIN 12.2 g/dL (14.0-18.0); LYMPHOCYTES # (AUTO) 0.7 10^3/uL (1.5-3.5); LYMPHOCYTES % (AUTO) 13.7 %; MEAN CORPUSCULAR HGB CONC 32.8 g/dL (32.0-36.0); MEAN CORPUSCULAR VOLUME 91.4 fL (80.0-94.0); MEAN PLATELET VOLUME 9.1 fL (7.4-11.4); MONOCYTES # (AUTO) 0.7 10^3/uL (0.0-1.0); MONOCYTES % (AUTO) 12.4 %; NEUTROPHILS # (AUTO) 3.8 10^3/uL (1.5-6.6); NEUTROPHILS % (AUTO) 70.4 %; PLT - PLATELET COUNT 207 10^3/uL (130-450); RED BLOOD COUNT 4.07 10^6/uL (4.70-6.10); RED CELL DISTRIBUTION WIDTH 12.8 % (12.0-15.0); WHITE BLOOD COUNT 5.3 x10^3/uL (4.8-10.8)
[2022-03-18 07:23] LABS: ALBUMIN 3.9 g/dL (3.2-5.5); ALBUMIN/GLOBULIN RATIO 1.4 (1.0-2.2); BILIRUBIN,TOTAL 0.4 mg/dL (0.2-1.0); CREATININE 0.8 mg/dL (0.6-1.2); POTASSIUM 3.9 mmol/L (3.5-5.0); TOTAL PROTEIN 6.7 g/dL (6.7-8.2)
--- NOTE | 2022-03-18 08:02 | XRAY Report ---
PROCEDURE: Chest 1 View X-Ray INDICATIONS: Chest Pain TECHNIQUE: One view of the chest was acquired. COMPARISON: Chest 2 views dated 09/06/2017. CT chest dated 07/23/2021 FINDINGS: Surgical changes and devices: Right chest Port-A-Cath. Lungs and pleura: No pleural effusions or pneumothorax. Stable changes in the left perihilar region consistent with posttreatment changes. Eventration of the left hemidiaphragm. Mediastinum: Mediastinal contours appear normal. Heart size is normal. Bones and chest wall: No suspicious bony lesions. Overlying soft tissues appear unremarkable. IMPRESSION: Stable appearance of left perihilar region compared to the previous CT, consistent with posttreatment changes. No evidence of acute pulmonary process. Findings are concordant with preliminary interpretation provided by [facility]. Reviewed by: Jered Lim MD on 03/18/2022 8:00 AM [facility] Approved by: Jered Lim MD on 03/18/2022 8:00 AM [facility] Station ID: [id number]
--- NOTE | 2022-03-18 08:16 | ED Physician Documentation ---
PD HPI CHEST PAIN - Stated complaint Stated Complaint: CHEST PAIN - Chief complaint Chief Complaint: Cardiac - History obtained from History obtained from: Patient - Additional information Additional information: The patient comes to the emergency department with chief complaint of episode of chest discomfort that started around 2 or 3:00 this morning. He states that he noticed pulses of a vibrating sensation over his left breast that was associated with a mild pain. He states the pain was not sharp and that it was probably around 3 out of 10. He states that the pulses would only last for couple of seconds but then he would get them every few minutes. He states the whole thing lasted around 2 hours but he is feeling completely well now. The patient states that he has had a similar sensation elsewhere in his body but never in his chest before. He states he has chronic nausea which he attributes to his chemotherapy. He denies any shortness of breath, escalation of the nausea, radiation of the discomfort, sweating, or lightheadedness that was associated with the discomfort. He states that he is not known to have any cardiac issues, and did have a stress test some years ago that was normal. He was a smoker early in life but quit about 45 years ago. He states he has been told he has "prediabetic" recently but is not on any medication for diabetes. He has a diagnosis of hypertension, but has been on medication for years and has been very well controlled. The patient states he has been having some lower GI issues and is scheduled for an EGD and colonoscopy later this month. He has previously taken an aspirin a day, but when he started chemotherapy, was told to stop taking aspirin because of an interaction. Review of Systems Ten Systems: 10 systems reviewed and negative Constitutional: reports: Reviewed and negative Eyes: reports: Reviewed and negative Ears: reports: Reviewed and negative Nose: reports: Reviewed and negative Throat: reports: Reviewed and negative Cardiac: reports: Chest pain / pressure Respiratory: reports: Reviewed and negative GI: reports: Reviewed and negative : reports: Reviewed and negative Skin: reports: Reviewed and negative Musculoskeletal: reports: Reviewed and negative Neurologic: reports: Reviewed and negative Psychiatric: reports: Reviewed and negative Endocrine: reports: Reviewed and negative Immunocompromised: reports: Reviewed and negative PD PAST MEDICAL HISTORY - Past Medical History Past Medical History: Yes Cardiovascular: Hypertension, High cholesterol Respiratory: Other Neuro: None Endocrine/Autoimmune: None GI: Chronic constipation, Other : Benign prostate hypertrophy HEENT: None Psych: None Musculoskeletal: None Derm: Eczema - Past Surgical History Past Surgical History: Yes General: Gastric surgery, Colonoscopy, EGD, 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 HEENT: Tonsil/Adenoidectomy - Present Medications Home Medications: Ambulatory Orders Medication Instructions Recorded Confirmed Lisinopril 20 mg PO DAILY 05/23/14 03/03/22 Atorvastatin [Lipitor] 1 tab PO DAILY 08/02/17 03/03/22 Chaga 420 mg PO DAILY 08/03/17 03/03/22 Dandelion Root 525 mg PO DAILY 08/03/17 03/03/22 Multivitamin [Multiple Vitamins] 1 tab PO DAILY 08/03/17 03/03/22 Psyllium Husk [Fiber] 1 cap PO DAILY 08/03/17 03/03/22 Ondansetron HCl 1 tab PO Q6HR PRN 02/17/22 03/03/22 - Allergies Allergies/Adverse Reactions: Allergies Allergy/AdvReac Type Severity Reaction Status Date / Time No Known Drug Allergies Allergy Verified 03/18/22 06:50 - Social History Does the pt smoke?: No Smoking Status: Never smoker Does the pt drink ETOH?: No Does the pt have substance abuse?: No - Immunizations Immunizations are current?: Yes - POLST Patient has POLST: No PD ED PE NORMAL - Vitals Vital signs reviewed: Yes - General General: Alert and oriented X 3, No acute distress, Well developed/nourished - HEENT HEENT: Atraumatic, PERRL, EOMI, Moist mucous membranes - Neck Neck: Supple, no meningeal sign - Cardiac Cardiac: RRR, No murmur, Strong equal pulses - Respiratory Respiratory: No respiratory distress, Clear bilaterally - Abdomen Abdomen: Soft, Non tender, Non distended - Derm Derm: Normal color, Warm and dry, No rash - Extremities Extremities: No deformity, No edema - Neuro Neuro: Alert and oriented X 3, 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2 L Hct 37.2 L MCV 91.4 MCH 30.0 MCHC 32.8 RDW 12.8 Plt Count 207 MPV 9.1 Neut # (Auto) 3.8 Lymph # (Auto) 0.7 L [place] # (Auto) 0.7 Eos # (Auto) 0.1 Baso # (Auto) 0.0 Absolute Nucleated RBC 0.00 Nucleated RBC % 0.0 Sodium 134 L Potassium 3.9 Chloride 100 L Carbon Dioxide 25 Anion Gap 9.0 BUN 14 Creatinine 0.8 Estimated GFR (MDRD) 92 Glucose 130 H Calcium 9.0 Total Bilirubin 0.4 AST 20 ALT 15 Alkaline Phosphatase 58 Troponin I High Sens 4.7 Total Protein 6.7 Albumin 3.9 Globulin 2.8 Albumin/Globulin Ratio 1.4 Lipase 36 03/18/22 08:40 WBC RBC Hgb Hct MCV MCH MCHC RDW Plt Count MPV Neut # (Auto) Lymph # (Auto) [place] # (Auto) Eos # (Auto) Baso # (Auto) Absolute Nucleated RBC Nucleated RBC % Sodium Potassium Chloride Carbon Dioxide Anion Gap BUN Creatinine Estimated GFR (MDRD) Glucose Calcium Total Bilirubin AST ALT Alkaline Phosphatase Troponin I High Sens 5.0 Total Protein Albumin Globulin Albumin/Globulin Ratio Lipase - Rads (name of study) Chest x-ray Radiology: Prelim report reviewed, Final report received, See rad report (No acute disease) PD MEDICAL DECISION MAKING - ED course Complexity details: reviewed results, re-evaluated patient, considered differential, d/w patient ED course: The patient is very well-appearing in the emergency department and his pain had resolved. The symptoms were atypical, but given his age, he was worked up with labs, EKG, and chest x-ray, all of which were unremarkable. The troponin was repeated At 2 hours, and also found to be negative. Departure - Departure Disposition: 01 Home, Self Care Clinical Impression: Palpitations Chest pain Qualifiers: Chest pain type: unspecified Qualified Code(s): R07.9 - Chest pain, unspecified Condition: Stable Instructions: ED Chest Pain Atypical Unkn Cause, ED Palpitations Comments: Your labs, including 2 sets of cardiac enzymes, look good. There is no evidence of a heart attack today. Your cardiac rhythm here in the emergency department has been normal and your EKG and chest x-ray also look good. It is not clear exactly what caused the sensation you have had today, but at this point in time, there is no evidence of an acutely serious condition. It is important that you follow-up with your primary doctor to discuss whether you can get back on your aspirin. This is advisable, given the chest discomfort and your age. There is demonstrated benefit cardiovascularly in heart attack and stroke prevention to taking a baby aspirin every day. Please also continue to get exercise as you are accustomed to doing. Dietary modifications can also be helpful in prevention of cardiovascular disease. Especially important are eating a low- cholesterol diet and getting a high proportion of plant-based foods. Avoidance of processed foods and moderation of sugar intake are also important. Please schedule the next available appointment with your primary doctor.
[2022-03-18 09:31] VITALS: BP 148/74
== END 2022-03-18 09:30 | disposition home or self-care (01) ==
LOC: EDUNIT# → ED 06:36
DX: R07.9 Chest pain, unspecified (principal); R00.2 Palpitations; I10 Essential (primary) hypertension
CPT/HCPCS: 36415; 80053; 83690; 84484; 85025; 93005; 96374; 99283

== ENCOUNTER → 2022-03-18 | Outpatient (CLI) | payer MEDICARE, OTHER | END | disposition critical access hospital (66) | LOC: EMS 06:18 | DX: R07.9 Chest pain, unspecified (principal) | CPT/HCPCS: A0425; A0429 ==

== ENCOUNTER 2022-03-19 08:37 | Outpatient (CLI) | payer MEDICARE, OTHER | END 2022-03-19 08:38 | disposition critical access hospital (66) | LOC: EMS 08:37 | DX: R20.2 Paresthesia of skin (principal); R26.89 Other abnormalities of gait and mobility; I95.9 Hypotension, unspecified; W18.39XA Other fall on same level, initial encounter; Y92.002 Bathroom of unspecified non-institutional (private) residence as the place of occurrence of the external cause | CPT/HCPCS: A0425; A0429 ==

== ENCOUNTER 2022-03-19 08:54 | Emergency (ER) | payer MEDICARE, OTHER ==
--- NOTE | 2022-03-19 09:46 | ED Physician Documentation ---
History of Present Illness - Stated complaint Stated Complaint: GLF - Chief complaint Chief Complaint: General - Additonal information Additional information: Patient is 86-year-old male presenting to the emergency department after ground-level fall. Reports he fell today in the bathroom. Uncertain if he struck his head. Denies loss of consciousness use of blood thinning medications or antiplatelet medications. Reports has had multiple falls recently because he has acute onset weakness in his left lower extremity. Reports it is a numb sensation in his left lower extremity. He does not endorse for any weakness or numbness anywhere else in the body or any associated episodes of difficulty with speech or facial droop. Has not followed up with his primary care doctor concerning this issue. Currently reports that he is in no pain. 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 HEENT: Tonsil/Adenoidectomy - Present Medications Home Medications: Ambulatory Orders Medication Instructions Recorded Confirmed Lisinopril 20 mg PO DAILY 05/23/14 03/19/22 Atorvastatin [Lipitor] 20 mg PO DAILY 08/02/17 03/19/22 Chaga 420 mg PO DAILY 08/03/17 03/03/22 Dandelion Root 525 mg PO DAILY 08/03/17 03/03/22 Multivitamin [Multiple Vitamins] 1 tab PO DAILY 08/03/17 03/03/22 Psyllium Husk [Fiber] 1 cap PO DAILY 08/03/17 03/03/22 Ondansetron HCl 1 tab PO Q6HR PRN 02/17/22 03/03/22 Omeprazole 40 mg PO DAILY 03/19/22 03/19/22 Prochlorperazine [Compazine] 10 mg PO Q6H 03/19/22 03/19/22 - Allergies Allergies/Adverse Reactions: Allergies Allergy/AdvReac Type Severity Reaction Status Date / Time No Known Drug Allergies Allergy Verified 03/18/22 06:50 - Social History Does the pt smoke?: No Smoking Status: Never smoker Does the pt drink ETOH?: No Does the pt have substance abuse?: No - Immunizations Immunizations are current?: Yes - POLST Patient has POLST: No PD ED PE NORMAL - Vitals Vital signs reviewed: Yes - General General: Alert and oriented X 3, No acute distress, Well developed/nourished - HEENT HEENT: Atraumatic - Neck Neck: Supple, no meningeal sign, No bony TTP - Cardiac Cardiac: RRR, No gallop - Respiratory Respiratory: No respiratory distress, Clear bilaterally - Abdomen Abdomen: Normal bowel sounds, Non tender - Male Male : Deferred - Rectal Rectal: Deferred - Back Back: No CVA TTP - Derm Derm: Normal color - Extremities Extremities: No deformity, No tenderness to palpate, No edema, No calf tenderness / cord - Neuro Neuro: Alert and oriented X 3, 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 Some chronic stasis changes noted to the lower extremities.) Results - Vitals Vitals: Vital Signs - 24 hr 03/19/22 03/19/22 09:12 11:38 Temperature 36.1 C L Heart Rate 85 87 Respiratory 18 18 Rate Blood Pressure 122/64 147/59 H O2 Saturation 99 97 Oxygen O2 Source Room air PD Medical Decision Making - ED course Complexity details: reviewed results, re-evaluated patient, d/w patient ED course: Patient is 86-year-old male coming to the emergency department after fall in the bathroom with history of frequent falls. Endorsed for periodic episodes of left leg cramping, pain and weakness which is precipitated 3 falls over the course of the last several days. Reports that these episodes were short-lived. Did not endorse for any other focal or lateralizing neurologic deficit. Came in today via EMS after falling in the bathroom and being unable to extract himself from the space between his toilet and his bathtub. He denied any head trauma. I did obtain a head CT given his advanced age and multiple frequent falls which was benign. The remainder of his Physical examIt is otherwise very reassuring. Head CT negative for acute traumatic injury. Ankle-brachial indexes were measured and patient's GIOVANNA 0.88. We will provide patient with walker. Will encourage careful follow-up with primary care. Otherwise clear return precautions given prior to discharge. Final clinical impression: Ground-level fall, leg weakness. Departure - Departure Disposition: 01 Home, Self Care Clinical Impression: Fall, Left leg weakness Comments: Thank you for allowing us to care for you today at [facility]. Head CT taken today did not show any traumatic injury. I would like you to use a walker provided in the emergency department at all times until you have an opportunity to be seen by your primary care doctor. If it anytime you have new or worsening symptoms please not hesitate to return. Discharge Date/Time: 03/19/22 11:57
--- NOTE | 2022-03-19 10:26 | CT Report ---
PROCEDURE: HEAD WO INDICATIONS: Fall, closed head injury, frequent falls TECHNIQUE: Noncontrast 4.5 mm thick angled axial sections acquired from the foramen magnum to the vertex. For r adiation dose reduction, the following was used: automated exposure control, adjustment of mA and/or kV according to patient size. COMPARISON: CT head dated 07/12/2017, brain MRI dated 08/16/2017. FINDINGS: Image quality: Excellent. CSF spaces: Basal cisterns are patent. No extra-axial fluid collections. Ventricles are normal in size and shape. Brain: No midline shift. No intracranial masses or hemorrhage. Erwin-white matter interface is norm al. Cavernous carotid calcifications bilaterally. Vertebral artery calcifications. Age-related volume loss and mild age-appropriate small vessel ischemic change. Skull and face: Calvarium and visualized facial bones are intact, without suspicious lesions. Sinuses: Again noted is an expansile lesion in the right nasal fossa. On previous CT image 10/06 it fidelina sured approximately 1.9 x 1.3 cm. On current image 09/08 and measures approximately 2.3 x 1.5 cm. It ma y represent a mucocele or a large polyp. There is an air-fluid level present in the right maxillary s inus consistent with acute sinusitis. IMPRESSION: 1. No evidence of acute intracranial process. 2. Mild interval increase in size of a possible polyp or mucocele centered in the right nasal fossa o nahid almost a 4 year period. 3. Acute right maxillary sinusitis. Reviewed by: Jered Lim MD on 03/19/2022 10:25 AM [facility] Approved by: Jered Lim MD on 03/19/2022 10:25 AM PST Station ID: [id number]
[2022-03-19 11:57] VITALS: BP 147/59
== END 2022-03-19 11:57 | disposition home or self-care (01) ==
LOC: EDUNIT# → ED 08:54
DX: R53.1 Weakness (principal); W19.XXXA Unspecified fall, initial encounter; Y92.002 Bathroom of unspecified non-institutional (private) residence as the place of occurrence of the external cause; Z91.81 History of falling; I10 Essential (primary) hypertension
CPT/HCPCS: 99284

== ENCOUNTER 2022-06-24 07:48 | Outpatient (CLI) | payer MEDICARE, OTHER ==
[2022-06-24] MEDS ORDERED: LIDOCAINE-MPF 1% 5 ML VIAL ONE (08:03)
[2022-06-24] MEDS ORDERED: fentaNYL 100 MCG/2 ML VIAL ONE (08:33)
[2022-06-24] MEDS ORDERED: ONDANSETRON 4 MG/2 ML VIAL ONE (08:33)
[2022-06-24] MEDS ORDERED: MIDAZOLAM 2 MG/2 ML VIAL ONE (08:33)
[2022-06-24 08:36] LABS: INR 1.1 (0.8-1.2); PT - PROTHROMBIN TIME 12.5 secs (9.9-12.6)
[2022-06-24 08:43] LABS: PARTIAL THROMBOPLASTIN TIME 41.5 secs (24.9-33.3)
[2022-06-24] MEDS ORDERED: ONDANSETRON 4 MG/2 ML VIAL IVP ONE (09:30)
[2022-06-24] MEDS ORDERED: MIDAZOLAM 2 MG/2 ML VIAL IVP ONE (09:30)
[2022-06-24] MEDS ORDERED: ONDANSETRON 4 MG/2 ML VIAL IVP SCH (09:30)
[2022-06-24] MEDS ORDERED: fentaNYL 100 MCG/2 ML VIAL IVP ONE (09:30)
[2022-06-24] MEDS ORDERED: LIDOCAINE-MPF 1% 5 ML VIAL SUBQ ONE (09:30)
[2022-06-24] MEDS ORDERED: fentaNYL 100 MCG/2 ML VIAL IVP SCH (09:30)
[2022-06-24] MEDS ORDERED: LACTATED RINGERS 1,000 ML IV ONE (10:11)
[2022-06-24 12:11] VITALS: BP 136/77
--- NOTE | 2022-06-24 17:53 | CT Report ---
PROCEDURE: Retroperitoneal Mass BX INDICATIONS: HEMIDIAPHRAGM MASS TECHNIQUE: PROCEDURE: Retroperitoneal Mass BX Sedation analgesia for approximately 30 minutes. INDICATIONS: HEMIDIAPHRAGM MASS TECHNIQUE: The indications, alternatives, benefits, risks, and possible complications of the procedure were comm unicated to the patient. Informed written consent from the patient was obtained and placed in the art. Continuous EKG and hemodynamic monitoring was started by trained personnel. For radiation dose reduction, the following was used: automated exposure control, adjustment of mA and/or kV according to patient size. The patient was brought to the CT suite and residential electrician spiral CT imaging was performed with localization g rid. The appropriate site for percutaneous access to the biopsy target was marked, was prepped and d raped sterilely, and was infused with local anaesthesia. Under CT guidance, a core biopsy trocar and needle set was advanced to the biopsy target, and specimen(s) were obtained. The trocar and needle were then removed, and the patient was sent for post-procedure monitoring. COMPARISON: CT abdomen and pelvis dated 06/02/2022 FINDINGS: Biopsy site: Anterolateral left subdiaphragmatic region of the abdomen Needle: 18 gauge biopsy needle with introducer trocar. Number of passes: 4 Medications: 1% lidocaine for local anaesthesia. IV Fentanyl and Versed for conscious sedation for approximately 30 minutes (see nursing record). Complications: None. IMPRESSION: Successful CT-guided biopsy of left upper quadrant abdominal mass. Reviewed by: Pantera Lebron MD on 06/24/2022 5:52 PM PDT Approved by: Pantera Lebron MD on 06/24/2022 5:52 PM PDT Station ID: [id number]
== END 2022-06-24 07:49 | disposition home or self-care (01) ==
LOC: DI 07:48
PROVIDERS: ATTEND Internal Medicine
DX: C79.89 Secondary malignant neoplasm of other specified sites (principal); C34.90 Malignant neoplasm of unspecified part of unspecified bronchus or lung
CPT/HCPCS: 36415; 49180; 85610; 85730; J7120

== ENCOUNTER 2023-01-21 13:50 | Outpatient (CLI) | payer MEDICARE, OTHER | END 2023-01-21 13:51 | disposition home or self-care (01) | LOC: LAB.N 13:50 | PROVIDERS: ATTEND Urology | DX: C61 Malignant neoplasm of prostate (principal) | CPT/HCPCS: 36415; 84153 ==

== ENCOUNTER 2023-04-24 20:38 | Emergency (ER) | payer MEDICARE, OTHER ==
[2023-04-24] MEDS: PROPARACAINE 0.5% OPHTH DROPS 15 ML EACHEYE STA (20:54)
[2023-04-24] MEDS: TETANUS/DIPHTHERIA/PERTUSSIS 0.5 ML SYRINGE IM ONE (21:50)
--- NOTE | 2023-04-24 21:58 | ED Physician Documentation ---
PD HPI HEADACHE - Stated complaint Stated Complaint: LT EYE INJ - Chief complaint Chief Complaint: Trauma Hd/Nk - History obtained from History obtained from: Patient - Additional information Additional information: 88-year-old gentleman was out walking this evening and his legs gave out on him and he fell forward hitting his face on concrete. He also has a skin tear on the left third finger and abrasions on both knees. He did not blackout and has no pain or headache. He is not anticoagulated. Tetanus is unknown. 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: Other HEENT: Cataracts - Present Medications Home Medications: Ambulatory Orders Medication Instructions Recorded Confirmed Lisinopril 20 mg PO DAILY 05/23/14 04/24/23 Atorvastatin [Lipitor] 20 mg PO DAILY 08/02/17 04/24/23 Multivitamin [Multiple Vitamins] 1 tab PO DAILY 08/03/17 04/24/23 Psyllium Husk [Fiber] 1 cap PO DAILY 08/03/17 04/24/23 Omeprazole 40 mg PO DAILY 03/19/22 04/24/23 Lidocaine/Prilocain 2.5% Cream 5 applic TOP DAILY PRN 04/24/23 04/24/23 [Emla 2.5% Cream] Mirtazapine 15 mg PO DAILY 04/24/23 04/24/23 - Allergies Allergies/Adverse Reactions: Allergies Allergy/AdvReac Type Severity Reaction Status Date / Time terbinafine [From Lamisil] Allergy Unknown Verified 04/24/23 20:47 - Social History Does the pt smoke?: No Smoking Status: Never smoker Does the pt drink ETOH?: No Does the pt have substance abuse?: No - Immunizations Immunizations are current?: Yes - POLST Patient has POLST: No PD ED PE NORMAL - Vitals Vital signs reviewed: Yes - General General: Alert and oriented X 3, No acute distress - HEENT HEENT: PERRL, EOMI, Other (There is significant ecchymosis and swelling in the left periorbital region with a laceration in the left eyebrow. No facial bony tenderness and no evidence of entrapment.) - Neck Neck: Supple, no meningeal sign, No bony TTP - Extremities Extremities: Other (Skin tear on the dorsum of the left third finger on the proximal phalanx which is nontender. Very shallow abrasions on both knees without tenderness.) - Neuro Neuro: Alert and oriented X 3, Normal speech Eye Opening: Spontaneous Motor: Obeys Commands Verbal: Oriented GCS Score: 15 Results - Vitals Vitals: Vital Signs - 24 hr 04/24/23 20:47 Temperature 36.3 C L Heart Rate 67 Respiratory 16 Rate Blood Pressure 122/71 O2 Saturation 100 Oxygen O2 Source Room air Procedures - Laceration (location) Left periorbital area Length in cm: 1 Wound type: Linear, Into subcut fat Wound preparation: Irrigated copiously NS Skin layer closure: Dermabond Other: Tetanus booster given Left third finger Length in cm: 1 Wound type: Flap, Superficial Neurovascular status: Sensory intact, Motor intact Wound preparation: Irrigated copiously NS Skin layer closure: Dermabond Other: Tetanus booster given PD Medical Decision Making - ED course ED course: 88-year-old gentleman had a ground-level fall injuring his face. Persistently bleeding wound in the left periorbital area and this was irrigated and glued closed. He also had a shallow minor skin tear on the left third finger treated similarly. Tetanus was updated. Care to Dr. Reddy at 10 PM shift change pending [address] of the head, face, and neck. Departure - Departure Clinical Impression: Ground-level fall Head injury Qualifiers: Encounter type: initial encounter Qualified Code(s): S09.90XA - Unspecified injury of head, initial encounter Facial contusion Qualifiers: Encounter type: initial encounter Qualified Code(s): S00.83XA - Contusion of other part of head, initial encounter Facial laceration Qualifiers: Encounter type: initial encounter Qualified Code(s): S01.81XA - Laceration without foreign body of other part of head, initial encounter Condition: Good Record reviewed to determine appropriate education?: Yes Instructions: ED Laceration Facial Skin Glue Comments: For the wounds that we glued close you can wash them briefly with soap and water. Otherwise no special care is needed. Watch for signs of infection and return for any redness, swelling, drainage, increased pain, or fever.
--- NOTE | 2023-04-24 22:40 | CT Report ---
PROCEDURE: Head WO INDICATIONS: Head trauma, mod-severe TECHNIQUE: Noncontrast 4.5 mm thick angled axial sections acquired from the foramen magnum to the vertex. For r adiation dose reduction, the following was used: automated exposure control, adjustment of mA and/or kV according to patient size. COMPARISON: Head CT, 06/02/2022. MRI brain, 07/31/2022 FINDINGS: Image quality: Excellent. CSF spaces: Basal cisterns are patent. No extra-axial fluid collections. Ventricles are normal in size and shape. Brain: No midline shift. No intracranial masses or hemorrhage. Mild cerebral volume loss for age. Erwin-white matter interface is normal. Skull and face: Calvarium and visualized facial bones are intact, without suspicious lesions. Sinuses: The right maxillary sinus is opacified. There is a 2 cm mass in the right nasal passage, lik trina mucous retention cyst or polyp . The mastoids are clear. IMPRESSION: 1. No acute intracranial pathology. 2. Right mastoid sinus disease. 3. There is a 2 cm mass in the right nasal passage most likely a mucous a cyst or polyp. Reviewed by: Essie Meng MD on 04/24/2023 10:38 PM PST Approved by: Essie Meng MD on 04/24/2023 10:38 PM PST Station ID: [id number]
--- NOTE | 2023-04-24 22:45 | CT Report ---
PROCEDURE: Cervical Spine WO INDICATIONS: Neck trauma, midline tenderness TECHNIQUE: Noncontrast 3 mm thick sections acquired from the skull base to the T4 level. Sagittal and coronal r eformats were then constructed. For radiation dose reduction, the following was used: automated exp osure control, adjustment of mA and/or kV according to patient size. COMPARISON: None. FINDINGS: Image quality: Excellent. Bones: No fractures or dislocations. Mild/moderate multilevel degenerative disc disease in cervical spine. Bilateral facet arthropathy, most pronounced and severe at C5 and C5 and C5-C6 on the left. Vi sualized superior ribs are intact. Soft tissues: There is maxillary sinus disease. A 2 cm mass is noted in the right nasal passage. Pre vertebral soft tissues are normal in thickness. No paravertebral hematomas. No apical pneumothorace s. IMPRESSION: 1. No acute cervical spine fracture. 2. Degenerative changes in cervical spine. 3. Right maxillary sinus disease. 4. A mass in the right nasal passage. Please see separate maxillofacial CT report. Reviewed by: Essie Meng MD on 04/24/2023 10:44 PM PST Approved by: Essie Meng MD on 04/24/2023 10:44 PM PST Station ID: [id number]
--- NOTE | 2023-04-24 22:49 | CT Report ---
PROCEDURE: Maxillofacial WO INDICATIONS: Facial trauma TECHNIQUE: Noncontrast 1.5 mm thick axial images acquired from the mandible through the frontal sinuses, with co casey and sagittal reformatting. For radiation dose reduction, the following was used: automated ex posure control, adjustment of mA and/or kV according to patient size. COMPARISON: CT head, 04/24/2023. MRI brain, 07/31/2022. FINDINGS: Image quality: Excellent. Bones and teeth: Orbital briseno are intact. Sinus briseno show no fracture or deformity. Nasal bones and septum are intact. Visualized portions of the mandible demonstrate no fractures or subluxation. Zygomatic arches are intact. Pterygoid plates are intact. Visualized portions of the skull base an d auditory canals are intact. Sinuses: The right maxillary sinus is nearly completely opacified. There is mild thickening of the po sterior wall of the right maxillary sinus. There is a 2 cm mass in the right nasal passage. Mastoid air cells are aerated. Soft tissues: No edema, masses, or fluid collections. No enlarged lymph nodes. No soft tissue lace rations or debris. Vascular: Visualized vascular structures appear normal in the absence of contrast. Bony vascular fo ramina and canals are intact. IMPRESSION: 1. No facial bone fractures. 2. Chronic right maxillary sinus disease. 3. A 2 cm mass in the right nasal passage. Differential diagnoses are a mucous retention cyst, polyp, and neoplastic mass. Consider repeat MRI with contrast for further evaluation. Reviewed by: Essie Meng MD on 04/24/2023 10:47 PM [facility] Approved by: Essie Meng MD on 04/24/2023 10:47 PM [facility] Station ID: [id number]
[2023-04-24 23:15] VITALS: BP 113/63; O2SAT 96
--- NOTE | 2023-05-05 16:59 | ED Physician Documentation ---
ED Addendum - Addendum Addendum: 88-year-old male left in my care with pending CT reports. Reports are as below. 05/05/23 16:58 CT facial bones Impression: 1. No facial bone fractures. 2. Chronic right maxillary sinus disease. 3. A 2 cm mass in the right nasal passage. Differential diagnoses are mucous retention cyst, polyp, and neoplastic mass. Consider repeat MRI with contrast for further evaluation. CT cervical spine: 05/05/23 16:59 Impression: 1. No acute cervical spine fracture. 2. Degenerative changes in the cervical spine. 3. Right maxillary sinus disease. 4. A mass in the right nasal passage. Please see separate maxillofacial CT report. CT head without: 05/05/23 17:00 Impression: 1. No acute intracranial pathology. 2. Right mastoid sinus disease. 3. There is a 2 cm mass in the right nasal passage most likely a mucous cyst or polyp. Jay armenta has had a fall and repair of a laceration and he has had CT scan of the head and neck. He has no facial bone fractures. He does have a maxillary sinus mass which is being investigated. He is discharged home in stable improved condition. Impression: Facial laceration, facial contusion, right maxillary sinus mass. Plan: after repair of the laceration with skin glue the patient is discharged to home with follow-up for a sinus mass. 05/05/23 17:02
== END 2023-04-24 23:07 | disposition home or self-care (01) ==
LOC: ED 20:38
DX: S09.90XA Unspecified injury of head, initial encounter (principal); S01.81XA Laceration without foreign body of other part of head, initial encounter; S61.213A Laceration without foreign body of left middle finger without damage to nail, initial encounter; W18.30XA Fall on same level, unspecified, initial encounter; J32.0 Chronic maxillary sinusitis; I10 Essential (primary) hypertension; E78.00 Pure hypercholesterolemia, unspecified; Z23 Encounter for immunization; Z79.899 Other long term (current) drug therapy
CPT/HCPCS: 12001; 90471; 99283; 99284

== ENCOUNTER → 2023-06-08 | Outpatient (CLI) | payer MEDICARE, OTHER | LOC: PC 08:00 | PROVIDERS: ATTEND Nurse Practitioner Adult Health | DX: Z51.5 Encounter for palliative care (principal); C34.92 Malignant neoplasm of unspecified part of left bronchus or lung; C78.01 Secondary malignant neoplasm of right lung; C78.6 Secondary malignant neoplasm of retroperitoneum and peritoneum; C77.9 Secondary and unspecified malignant neoplasm of lymph node, unspecified; L29.8 Other pruritus; T45.1X5A Adverse effect of antineoplastic and immunosuppressive drugs, initial encounter; M47.814 Spondylosis without myelopathy or radiculopathy, thoracic region; M47.816 Spondylosis without myelopathy or radiculopathy, lumbar region; R53.1 Weakness; Z91.81 History of falling; Z79.620 Long term (current) use of immunosuppressive biologic; R21 Rash and other nonspecific skin eruption; R53.83 Other fatigue; Z92.3 Personal history of irradiation; Z85.46 Personal history of malignant neoplasm of prostate; R93.0 Abnormal findings on diagnostic imaging of skull and head, not elsewhere classified; Z79.899 Other long term (current) drug therapy; Z90.79 Acquired absence of other genital organ(s); Z91.85 Personal history of military service; Z71.89 Other specified counseling | CPT/HCPCS: 99215 ==

== ENCOUNTER → 2023-08-11 | Outpatient (CLI) | payer MEDICARE, OTHER | LOC: PC 08:00 | PROVIDERS: ATTEND Nurse Practitioner Adult Health | DX: Z51.5 Encounter for palliative care (principal); R53.83 Other fatigue; L29.8 Other pruritus; T45.1X5A Adverse effect of antineoplastic and immunosuppressive drugs, initial encounter; C34.92 Malignant neoplasm of unspecified part of left bronchus or lung; C78.01 Secondary malignant neoplasm of right lung; C77.9 Secondary and unspecified malignant neoplasm of lymph node, unspecified; C79.89 Secondary malignant neoplasm of other specified sites; Z85.46 Personal history of malignant neoplasm of prostate; Z92.3 Personal history of irradiation; Z92.21 Personal history of antineoplastic chemotherapy; Z79.899 Other long term (current) drug therapy | CPT/HCPCS: 99215 ==

== ENCOUNTER 2023-11-24 10:00 | Outpatient (CLI) | payer MEDICARE, OTHER | END 2023-11-24 23:59 | disposition home or self-care (01) | LOC: PC 10:00 | PROVIDERS: ATTEND Nurse Practitioner Adult Health | DX: Z51.5 Encounter for palliative care (principal); C34.92 Malignant neoplasm of unspecified part of left bronchus or lung; C77.9 Secondary and unspecified malignant neoplasm of lymph node, unspecified; C78.01 Secondary malignant neoplasm of right lung; C79.89 Secondary malignant neoplasm of other specified sites; R53.83 Other fatigue; L29.9 Pruritus, unspecified; R63.4 Abnormal weight loss; I95.9 Hypotension, unspecified; Z68.1 Body mass index [BMI] 19.9 or less, adult; Z71.89 Other specified counseling | CPT/HCPCS: 99215 ==

== ENCOUNTER 2023-11-29 15:28 | Outpatient (CLI) | payer MEDICARE, OTHER ==
--- NOTE | 2023-11-29 17:17 | XRAY Report ---
PROCEDURE: Chest 1V INDICATIONS: LUNG CA, COUGH, DECREASED LLL LUNG SOUNDS TECHNIQUE: One view of the chest was acquired. COMPARISON: CT chest with contrast dated 10/18/2023. FINDINGS: Surgical changes and devices: Right chest Port-A-Cath. Lungs and pleura: No pleural effusions or pneumothorax. Left suprahilar density is not significantly different than on the recent CT of the chest. There is a degree of volume loss in the left hemithora x.. Mediastinum: Mediastinal contours appear normal. Heart size is normal. Bones and chest wall: No suspicious bony lesions. Overlying soft tissues appear unremarkable. IMPRESSION: Unchanged left suprahilar density. No superimposed acute infiltrates. Reviewed by: Jered Lim MD on 11/29/2023 5:15 PM PDT Approved by: Jered Lim MD on 11/29/2023 5:15 PM PDT Station ID: [id number]
== END 2023-11-29 15:29 | disposition home or self-care (01) ==
LOC: DI 15:28
DX: C34.90 Malignant neoplasm of unspecified part of unspecified bronchus or lung (principal); R05.9 Cough, unspecified; R06.89 Other abnormalities of breathing

== ENCOUNTER 2024-04-10 11:20 | Inpatient (IN) ==
[2024-04-10 12:09] LABS: BASOPHILS # (AUTO) 0.1 10^3/uL (0.0-0.1); BASOPHILS % (AUTO) 0.3 %; HCT - HEMATOCRIT 35.9 % (42.0-52.0); HGB - HEMOGLOBIN 11.1 g/dL (14.0-18.0); LYMPHOCYTES # (AUTO) 0.4 10^3/uL (1.5-3.5); MEAN CORPUSCULAR HEMOGLOBIN 27.8 pg (27.0-31.0); MEAN CORPUSCULAR HGB CONC 30.9 g/dL (32.0-36.0); MEAN PLATELET VOLUME 8.6 fL (7.4-11.4); MONOCYTES # (AUTO) 0.7 10^3/uL (0.0-1.0); MONOCYTES % (AUTO) 3.8 %; NEUTROPHILS # (AUTO) 17.5 10^3/uL (1.5-6.6); NEUTROPHILS % (AUTO) 93.3 %; PLT - PLATELET COUNT 669 10^3/uL (130-450); RED BLOOD COUNT 3.99 10^6/uL (4.70-6.10); RED CELL DISTRIBUTION WIDTH 13.7 % (12.0-15.0); WHITE BLOOD COUNT 18.8 x10^3/uL (4.8-10.8)
[2024-04-10 12:34] LABS: ALBUMIN 3.2 g/dL (3.2-5.5); ALBUMIN/GLOBULIN RATIO 0.7 (1.0-2.2); BILIRUBIN,TOTAL 0.5 mg/dL (0.2-1.0); CALCIUM 9.8 mg/dL (8.5-10.3); CREATININE 0.7 mg/dL (0.6-1.3); POTASSIUM 4.1 mmol/L (3.5-4.5); TOTAL PROTEIN 7.6 g/dL (6.4-8.9)
[2024-04-10] MEDS ORDERED: ONDANSETRON 4 MG/2 ML VIAL IVP PRN (12:41)
[2024-04-10] MEDS ORDERED: ACETAMINOPHEN 500 MG TABLET PO PRN (12:41)
--- NOTE | 2024-04-10 12:41 | ED Physician Documentation ---
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 He is a palliative care patient. He is on Keytruda. He had an outpatient CT done yesterday demonstrating a right lung abscess. The palliative care nurse practitioner talked with our hospitalist and was also reportedly discussed with radiology. It was not of a size needing interventional drainage, just IV antibiotics. Attempt at direct admission was made but no beds were available so he was referred to the emergency department. He has been coughing for weeks and feels more short of breath than normal. That said he does not have any fevers nor is he in any pain. Meds/Allgy Home Medications Ambulatory Orders Medication Instructions Recorded Confirmed benzonatate 200 mg capsule 200 mg PO TID PRN cough #30 caps 01/04/24 02/16/24 omeprazole 40 mg capsule,delayed 40 mg PO DAILY 01/04/24 03/09/24 release ondansetron HCl 4 mg tablet 4 mg PO Q6H PRN nausea and 01/05/24 03/09/24 vomiting #30 tabs prochlorperazine maleate 10 mg 10 mg PO Q6H PRN nausea and 01/05/24 03/09/24 tablet (Compazine) vomiting #30 tabs polyethylene glycol 3350 17 17 g PO QDAY 02/16/24 03/09/24 gram/dose oral powder (Miralax) mirtazapine 15 mg tablet 15 mg PO HS 04/05/24 04/05/24 levofloxacin 750 mg tablet 750 mg PO QDAY #30 tabs 04/09/24 Allergies Allergies Allergy/AdvReac Type Severity Reaction Status Date / Time terbinafine (From Lamisil) Allergy Unknown Verified 04/10/24 12:05 [facility] Medical History Medical History (Updated 04/10/24 @ 12:41 by Shelton Osorio MD) Fall Fracture of nasal bone Abrasion of knee, left Hyperlipidemia Prostate cancer Acute urinary retention Surgical History Surgical History History of fundoplication H/O prostatectomy Social History Social History (Updated 04/05/24 @ 19:04 by Stevette Jasiel, FREELANCE DESIGNER) Smoking Status: Former smoker If you are a former smoker, when did you quit? (Date/Year): 1978 Number of Years Smoked: 30 How many cigarettes a day do you smoke? (20 cigarettes=1 Pk): 30 Second hand tobacco smoke exposure: Yes Do you dip or chew tobacco?: No Do you vape?: No Living arrangement: At home Marital Status: Single Living Condition: With spouse/s.o. Support Person: Yes Relationship: Living Situation Details: Lives with spouse Jill Physical Activity: None Level: Assisted Home Mobility Equipment: Cane Do you feel safe in your home environment?: Yes Suffered physical, verbal, emotional, or financial abuse?: No History of Abuse: No ETOH Use: None Frequency: Daily Substance Use: denies use Retired: Yes Service: Yes Are you following a diet prescribed by a doctor: No Are you following a special diet: No POLST Patient has POLST: Yes POLST Status: Selected Treatments Exam Constitutional Frail cachectic gentleman who is in no distress and appears nontoxic. Respiratory Diminished on the right, nonlabored Cardiovascular normal heart rate noted, regular rhythm noted and no murmur Gastrointestinal abdomen soft to palpation and nontender to palpation Neurology GCS 15 Results Vitals Vitals: Vital Signs - 24 hr 04/10/24 12:05 Temperature 37 C Temperature Source Oral Pulse Rate 98 Respiratory Rate 24 Blood Pressure 129/62 O2 Saturation 97 O2 Source Room air Pain Intensity 0 Oxygen O2 Source Room air Labs Labs: Laboratory Tests 04/10/24 11:56 WBC 18.8 H RBC 3.99 L Hgb 11.1 L Hct 35.9 L MCV 90.0 MCH 27.8 MCHC 30.9 L RDW 13.7 Plt Count 669 H MPV 8.6 Neut # (Auto) 17.5 H Lymph # (Auto) 0.4 L Lynn # (Auto) 0.7 Eos # (Auto) 0.0 Baso # (Auto) 0.1 Absolute Nucleated RBC 0.00 Nucleated RBC % 0.0 Sodium 136 Potassium 4.1 Chloride 100 L Carbon Dioxide 29 Anion Gap 7.0 BUN 22 H Creatinine 0.7 Estimated GFR (MDRD) 107 Glucose 135 H Lactic Acid 1.3 Calcium 9.8 Total Bilirubin 0.5 AST 15 ALT 18 Alkaline Phosphatase 102 Total Protein 7.6 Albumin 3.2 Globulin 4.4 H Albumin/Globulin Ratio 0.7 L PD Medical Decision Making ED course ED course: 89-year-old gentleman with lung abscess based on CT yesterday. Workup here demonstrates leukocytosis at 18,000, this is acute. He has chronic stable anemia. CMP basically unremarkable. Blood cultures were ordered. Lactate normal. He does not appear septic. Decision to admit was made prior to patient's arrival, but he is boarding in the emergency department due to hospital capacity currently fifth in line for admission to the hospital. His port was accessed and I ordered IV Unasyn. The patient and family are counseled as to the diagnosis and need for admission. This document was made in part using voice recognition software, while efforts are made to proofread this document, sound alike an grammatical errors may occur. Discharge Plan Discharge Patient Disposition: 66 [facility] DC/Xfer Condition: Stable Clinical Impression: Abscess of lung with pneumonia Qualifiers: Laterality: right Lung location: middle lobe of lung Qualified Code(s): J85.1 - Abscess of lung with pneumonia Prescriptions: No Action omeprazole 40 mg capsule,delayed release(DR/EC) 40 mg PO DAILY Patient Comments: in the AM benzonatate 200 mg capsule 200 mg PO TID PRN (Reason: cough) Qty: 30 0RF mirtazapine 15 mg tablet 15 mg PO HS levofloxacin 750 mg tablet 750 mg PO QDAY Qty: 30 5RF ondansetron HCl 4 mg tablet 4 mg PO Q6H PRN (Reason: nausea and vomiting) Qty: 30 0RF prochlorperazine maleate [Compazine] 10 mg tablet 10 mg PO Q6H PRN (Reason: nausea and vomiting) Qty: 30 0RF Rx Instructions: take if ondansetron not effective polyethylene glycol 3350 [Miralax] 17 gram/dose powder 17 g PO QDAY Print Language: [place] Stand Alone Forms: PCP List
[2024-04-10] MEDS: AMPICILLIN/SULBACTAM 3 GM in SODIUM CHLORIDE 0.9% MINIBAG 100 ML IV STA (12:52)
--- NOTE | 2024-04-10 14:11 | PHARMACY PROGRESS NOTE ---
Best Possible Medication History Admit Date and Time: Home Medications Medication Instructions Recorded Confirmed Type omeprazole 40 mg capsule,delayed 40 mg PO DAILY 01/04/24 04/10/24 History release mirtazapine 15 mg tablet 15 mg PO HS 04/05/24 04/10/24 History levofloxacin 750 mg tablet 750 mg PO QDAY #30 tabs 04/09/24 Rx Processed by: Pharmacy Medications reviewed in ED?: Yes Medication History completed: Yes Patient Interview: Completed Secondary Source(s): Insurance records (levofloxacin ordered yesterday, pt unsure if started yet) [facility] Statement: As the person ultimately responsible for medication therapy, providers are able to order a medication from an existing home medication list in [facility] via the "Reconcile Routine" prior to Confirmation of that medication by ict support engineer. Such practice is discouraged except when the physician, in their clinical judgment, deems that a medical need exists for a medication without regard to previous use.
[2024-04-10] MEDS: AMPICILLIN/SULBACTAM 3 GM in SODIUM CHLORIDE 0.9% MINIBAG 100 ML IV SCH (19:09)
[2024-04-10] MEDS: MIRTAZAPINE 15 MG TABLET PO SCH (20:04)
[2024-04-11 05:37] LABS: BASOPHILS % (AUTO) 0.3 %; EOSINOPHILS # (AUTO) 0.1 10^3/uL (0.0-0.7); EOSINOPHILS % (AUTO) 0.4 %; HCT - HEMATOCRIT 28.6 % (42.0-52.0); LYMPHOCYTES # (AUTO) 0.5 10^3/uL (1.5-3.5); LYMPHOCYTES % (AUTO) 4.5 %; MEAN CORPUSCULAR HEMOGLOBIN 28.4 pg (27.0-31.0); MEAN CORPUSCULAR HGB CONC 31.5 g/dL (32.0-36.0); MEAN CORPUSCULAR VOLUME 90.2 fL (80.0-94.0); MEAN PLATELET VOLUME 8.7 fL (7.4-11.4); MONOCYTES # (AUTO) 0.9 10^3/uL (0.0-1.0); MONOCYTES % (AUTO) 7.3 %; NEUTROPHILS # (AUTO) 10.4 10^3/uL (1.5-6.6); NEUTROPHILS % (AUTO) 86.9 %; PLT - PLATELET COUNT 443 10^3/uL (130-450); RED BLOOD COUNT 3.17 10^6/uL (4.70-6.10); RED CELL DISTRIBUTION WIDTH 13.8 % (12.0-15.0); WHITE BLOOD COUNT 11.9 x10^3/uL (4.8-10.8)
[2024-04-11 05:50] LABS: CALCIUM 8.6 mg/dL (8.5-10.3); CREATININE 0.5 mg/dL (0.6-1.3); POTASSIUM 3.8 mmol/L (3.5-4.5)
--- NOTE | 2024-04-11 07:13 | ED Physician Documentation ---
ED Addendum Addendum Addendum: Patient endorsed to me by physician at 10pm shift change awaiting bed for admission. VICENTA. Patient endorsed to Dr. Petersen at 7am shift change. Discharge Plan Discharge Patient Disposition: 66 [facility] DC/Xfer Condition: Stable Clinical Impression: Abscess of lung with pneumonia Qualifiers: Laterality: right Lung location: middle lobe of lung Qualified Code(s): J85.1 - Abscess of lung with pneumonia Prescriptions: No Action omeprazole 40 mg capsule,delayed release(DR/EC) 40 mg PO DAILY Patient Comments: in the AM mirtazapine 15 mg tablet 15 mg PO HS levofloxacin 750 mg tablet 750 mg PO QDAY Qty: 30 5RF Print Language: [place]
[2024-04-11] MEDS: PANTOPRAZOLE 40 MG TABLET PO SCH (07:38)
--- NOTE | 2024-04-11 12:57 | ED Physician Documentation ---
ED Addendum Addendum Addendum: The patient is signed out to me at change of shift, pending admission after CT scan showed a long abscess. The patient has been boarding in the ED because no beds have been available for admission. I was informed at the morning meeting that there are beds available and I was able to discuss the case with Dr. Laisha Meyers and nurse practitioner Nerissa Page. They have agreed to admit the patient to their service. Final impression: 1. Pneumonia 2. Lung abscess 3. Lung cancer Disposition: Admit to hospitalist service in serious but stable condition. Discharge Plan Discharge Patient Disposition: 66 [facility] DC/Xfer Condition: Stable Clinical Impression: Abscess of lung with pneumonia Qualifiers: Laterality: right Lung location: middle lobe of lung Qualified Code(s): J85.1 - Abscess of lung with pneumonia Prescriptions: No Action omeprazole 40 mg capsule,delayed release(DR/EC) 40 mg PO DAILY Patient Comments: in the AM mirtazapine 15 mg tablet 15 mg PO HS levofloxacin 750 mg tablet 750 mg PO QDAY Qty: 30 5RF Print Language: [place]
--- NOTE | 2024-04-11 14:20 | HISTORY & PHYSICAL EXAMINATION ---
Chief Complaint Chief Complaint Chief Complaint: shortness of air History of Present Illness Admitted From Admitted From:: home History Obtained From Records Reviewed: oncology notes History obtained from: patient History of Present Illness HPI Comment/Other: 89-year-old gentleman who presents to the emergency department complaining of shortness of breath. 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 Presented to the emergency department with increasing shortness of air after having had an outpatient lung CT and response to the symptoms. CT showed a right lung abscess. Findings of the CT were discussed with interventional radiology and the determination was made that this patient does not need interventional drainage just IV antibiotics. Attempt was made a direct admission but unfortunately there have not been hospital beds available and the patient has been sitting in the emergency department for about a day. He has been stable, he has not required any supplemental oxygen he has not had any tachycardia he has not run any fevers. Meds/Allgy Home Medications Ambulatory Orders Medication Instructions Recorded Confirmed omeprazole 40 mg capsule,delayed 40 mg PO DAILY 01/04/24 04/10/24 release mirtazapine 15 mg tablet 15 mg PO HS 04/05/24 04/10/24 levofloxacin 750 mg tablet 750 mg PO QDAY #30 tabs 04/09/24 Allergies Allergies Allergy/AdvReac Type Severity Reaction Status Date / Time terbinafine (From Lamisil) Allergy Unknown Verified 04/10/24 12:05 [facility] Medical History Medical History (Updated 04/11/24 @ 15:05 by ADRIANO Steve) Fall Fracture of nasal bone Abrasion of knee, left Hyperlipidemia Prostate cancer Acute urinary retention Surgical History Surgical History History of fundoplication H/O prostatectomy Social History Social History (Updated 04/05/24 @ 19:04 by ANGELES Keene) Smoking Status: Former smoker If you are a former smoker, when did you quit? (Date/Year): 1978 Number of Years Smoked: 30 How many cigarettes a day do you smoke? (20 cigarettes=1 Pk): 30 Second hand tobacco smoke exposure: Yes Do you dip or chew tobacco?: No Do you vape?: No Living arrangement: At home Marital Status: Single Living Condition: With spouse/s.o. Support Person: Yes Relationship: Living Situation Details: Lives with spouse Jill Physical Activity: None Level: Assisted Home Mobility Equipment: Cane Do you feel safe in your home environment?: Yes Suffered physical, verbal, emotional, or financial abuse?: No History of Abuse: No ETOH Use: None Frequency: Daily Substance Use: denies use Retired: Yes Service: Yes Are you following a diet prescribed by a doctor: No Are you following a special diet: No POLST Patient has POLST: Yes POLST Status: Selected Treatments Review of Systems Status of ROS: 10 or more systems reviewed and unremarkable except as noted in history and below Constitutional Reports: Fatigue and Malaise; Denies: Fever Eyes Denies: Blurry vision Ears, nose, mouth, and throat Denies: Tinnitus Cardiovascular Reports: shortness of breath with exertion; Denies: chest pain, palpitations, edema or swelling of feet/ankles Respiratory Reports: Shortness of breath and Cough Gastrointestinal Denies: Abdominal pain or Abdominal distention Musculoskeletal Denies: Back pain or Extremity pain Integumentary/Breast Denies: Rash Neurological Reports: General weakness Psychiatric Denies: Depression Endocrine Reports: Fatigue Hematologic/Lymphatic Reports: Anemia Prior Level of Functionality: does not drive. lives at home with . has daughter who lives on [address]. Son in [place], [place]. Uses a cane Exam Constitutional frail appearing, cachectic. HENMT normocephalic and hearing grossly normal bilaterally Eyes PERRL Neck/C-Spine visual inspection normal Lymph no lymphadenopathy noted Chest inspection of chest normal Respiratory breath sounds equal bilaterally, normal respiratory effort and no use of accessory muscles Cardiovascular normal heart rate noted, regular rhythm noted and no murmur Gastrointestinal abdomen normal to inspection Extremities normal to inspection Neurology no focal motor deficit noted and GCS 15 Psychiatry mental status grossly normal, oriented x3, thought process normal, cooperative and affect normal Skin skin color normal Conclusion/Plan Problem List (1) Abscess of lung with pneumonia: Plan: New right lower lobe lung mass. Patient has been on Unasyn for about 24 hours, as has been held in the ED for a period of a day or so. The appearance of this is infection, although could certainly be cancer. Interventional radiology has been consulted, and state there is no indication for drainage of the fluid. recommend antibiotics only. His leukocytosis has improved since institution of antibiotics. I have discussed this patient with Dr Alexandra and requested that he render an option regarding possible drainage. I will repeat CBC in the AM. Qualifiers: Laterality: right Lung location: middle lobe of lung Qualified Code(s): J85.1 - Abscess of lung with pneumonia (2) Severe protein-calorie malnutrition: Plan: has had decreased appetite. has had continuous weight loss. He is on Remeron for this. Palliative care is actively involved. (3) Prostate cancer: Plan: Last PSA on record is .010 Feb 2022. no active urinary symptoms. (4) Stage IV squamous cell carcinoma of left lung: Plan: Advanced care planning. This is a palliative care patient and these issues have been adequately addressed. (5) Hypertension: Plan: has been normotensive. no meds listed on home meds. Will continue to monitor. Qualifiers: Hypertension type: unspecified Qualified Code(s): I10 - Essential (primary) hypertension (6) GERD (gastroesophageal reflux disease): Plan: I will continue home medication of protonix. Qualifiers: Esophagitis presence: esophagitis presence not specified Qualified Code(s): K21.9 - Gastro-esophageal reflux disease without esophagitis Plan I have spent 82 minutes in the care of this patient today. This includes time [id number], review and ordering of diagnostic imaging and laboratory studies and consultation with other providers.. Monitoring the patient's signs symptoms, evaluation of medication effectiveness and patient's response to treatment. Lab Results Lab results reviewed: Yes 04/11/24 05:26 04/11/24 05:26
[2024-04-11] MEDS ORDERED: oxyCODONE 5 MG TABLET PO PRN (14:34)
[2024-04-11] MEDS ORDERED: ACETAMINOPHEN 325 MG TABLET PO PRN (14:34)
[2024-04-11] MEDS ORDERED: ONDANSETRON ODT 4 MG TABLET TL PRN (14:34)
--- NOTE | 2024-04-11 16:52 | CONSULTATION NOTE ---
Referring Provider Name of Referring Provider:: Nerissa Page PA-C Consult Date: 04/11/24 Chief Complaint Chief Complaint Chief Complaint: Abnormal chest CT finding in a patient with known metastatic squamous cell History of Present Illness Admitted From Admitted From:: ED History Obtained From Records Reviewed: Yes History obtained from: Patient, chart and Nerissa Page PA-C Exam Limitations: None. History of Present Illness HPI Comment/Other: Nerissa Page PA-C asked that I see this delightful now 89 year old male after his recent CT scan of his chest returned a result of a possible lung abscess. Before I saw the patient I reviewed the CT personally and then again with Devyn (the radiologist on duty today but not the one that read the original CT scan). The CT scan does not have the normally enhancing wall with air-fluid level that is usually seen in a "classic" lung abscess. I asked Devyn whether this finding could represent necrotic lung and he stated that this was a possibility. I should state that this patient is known to me as I saw him back April 14, [address] Estrella for evaluation of a LEFT inguinal hernia. At that time after a in depth conversation we decided that surgical repair was not indicated. I should note that he was 86 kilograms then and now is 56.5 kilograms. Now I visited him in Room 2201 at [facility] Medical-Surgical unit. He has been followed by Dr. Garrison (Oncologist) and Alis (Palliative Care). He has been receiving immunotherapy but states that it has not been working as well as it should and he is aware that "it may be time to ." I asked if he has had this conversation with Alis and he states that he has and they have discussed transitioning to Hospice Care. He has an appointment next week with Dr. Garrison and this may be the result of the conversation. He confirmed with me that he is DNI/DNR. I asked him if there was any way that we could improve his comfort and he is unaware how. [facility] Medical History Medical History (Updated 04/11/24 @ 15:05 by ADRIANO Steve) Fall Fracture of nasal bone Abrasion of knee, left Hyperlipidemia Prostate cancer Acute urinary retention Surgical History Surgical History History of fundoplication H/O prostatectomy Social History Social History (Updated 04/05/24 @ 19:04 by ANGELES Keene) Smoking Status: Former smoker If you are a former smoker, when did you quit? (Date/Year): 1978 Number of Years Smoked: 30 How many cigarettes a day do you smoke? (20 cigarettes=1 Pk): 30 Second hand tobacco smoke exposure: Yes Do you dip or chew tobacco?: No Do you vape?: No Living arrangement: At home Marital Status: Single Living Condition: With spouse/s.o. Support Person: Yes Relationship: Living Situation Details: Lives with spouse Jill Physical Activity: None Level: Assisted Home Mobility Equipment: Cane Do you feel safe in your home environment?: Yes Suffered physical, verbal, emotional, or financial abuse?: No History of Abuse: No ETOH Use: None Frequency: Daily Substance Use: denies use Retired: Yes Service: Yes Are you following a diet prescribed by a doctor: No Are you following a special diet: No POLST Patient has POLST: Yes POLST Status: Selected Treatments Meds/Allgy Home Medications Ambulatory Orders Medication Instructions Recorded Confirmed omeprazole 40 mg capsule,delayed 40 mg PO DAILY 01/04/24 04/10/24 release mirtazapine 15 mg tablet 15 mg PO HS 04/05/24 04/10/24 levofloxacin 750 mg tablet 750 mg PO QDAY #30 tabs 04/09/24 Allergies Allergies Allergy/AdvReac Type Severity Reaction Status Date / Time terbinafine (From Lamisil) Allergy Unknown Verified 04/10/24 12:05 Results Lab Results 04/11/24 05:26 04/11/24 05:26 Other Lab Results: Lab Results x24hrs 04/11/24 Range/Units 05:26 WBC 11.9 H (4.8-10.8) x10^3/uL RBC 3.17 L (4.70-6.10) 10^6/uL Hgb 9.0 L (14.0-18.0) g/dL Hct 28.6 L (42.0-52.0) % MCV 90.2 (80.0-94.0) fL MCH 28.4 (27.0-31.0) pg MCHC 31.5 L (32.0-36.0) g/dL RDW 13.8 (12.0-15.0) % Plt Count 443 (130-450) 10^3/uL MPV 8.7 (7.4-11.4) fL Neut # (Auto) 10.4 H (1.5-6.6) 10^3/uL Lymph # (Auto) 0.5 L (1.5-3.5) 10^3/uL [place] # (Auto) 0.9 (0.0-1.0) 10^3/uL Eos # (Auto) 0.1 (0.0-0.7) 10^3/uL Baso # (Auto) 0.0 (0.0-0.1) 10^3/uL Absolute Nucleated RBC 0.00 x10^3/uL Nucleated RBC % 0.0 /100WBC Sodium 137 (135-145) mmol/L Potassium 3.8 (3.5-4.5) mmol/L Chloride 104 (101-111) mmol/L Carbon Dioxide 27 (21-32) mmol/L Anion Gap 6.0 (6-13) BUN 21 H (6-20) mg/dL Creatinine 0.5 L (0.6-1.3) mg/dL Estimated GFR (MDRD) 157 (>89) Glucose 90 (74-104) mg/dL Calcium 8.6 (8.5-10.3) mg/dL Diagnostic Imaging Results Diagnostic Imaging Results: positive Final report reviewed, Discussed with radiologist and Read independently Conclusion and Plan Diagnosis Diagnosis: Abnormal CT finding of the RIGHT lung base in a 89 year old gentleman with Stage IV squamous cell carcinoma Plan Plan: The patient has improved with the administration of antibiotics. I would continue this course. If the patient worsens and this lesion enlarges and/or the patient becomes symptomatic either interventional radiology to access it or general surgery to perform thoracoscopy with drainage. Right now, with the patient improving, it is hard to recommend intervention. The risk from intervention is VERY small but it is currently hard to demonstrate a benefit. I have spoken with the patient about transition from Palliative Care to Hospice Care and the patient feels that the time is near. Alis has also talked to him about this. I think this would be extremely helpful moving forward. I have asked him to let us know if there is anyway we can make his stay at [facility] more comfortable to please let us know. I appreciate the opportunity to re-connect with this very pleasant patient and participate in his care. CPT 69831 Review of Systems Constitutional Reports: Fatigue, Weakness and Weight loss; Denies: Fever or Chills Eyes Denies: Pain Ears, nose, mouth, and throat Denies: Ear pain Cardiovascular Reports: shortness of breath with exertion and Decreased exercise tolerance; Denies: Irregular heart rate Respiratory Reports: Shortness of breath Gastrointestinal Denies: Abdominal pain or Abdominal distention Integumentary/Breast Reports: Dryness; Denies: Rash Neurological Reports: General weakness; Denies: Headache Psychiatric Reports: Other (I find him remarkably clear headed.); Denies: Depression or Anxiety Endocrine Reports: Fatigue Hematologic/Lymphatic Reports: Anemia Exam Constitutional Cachectic with marked weight loss - see above. Bitemporal wasting. HENMT hearing grossly normal bilaterally Mouth relatively dry with s0-so dentition. Eyes conjunctivae normal and no scleral icterus Neck/C-Spine trachea midline Respiratory no wheezes and no use of accessory muscles Crackles bilaterally anterolaterally. Cardiovascular normal heart rate noted Gastrointestinal Benign. Genitourinary Did not examine. Back/Pelvis Did not examine. Extremities Wasting. Psychiatry mental status grossly normal, oriented x3, thought process normal, cooperative, affect normal, psychomotor activity normal and memory normal Skin no rash, no ecchymosis noted, no lacerations, no jaundice, no mottling and no alopecia
[2024-04-11] MEDS: SODIUM CHLORIDE FLUSH 0.9% 10 ML SYRINGE IVP SCH (17:49)
[2024-04-11] MEDS: MIRTAZAPINE 15 MG TABLET PO SCH (20:34)
[2024-04-11] MEDS: SODIUM CHLORIDE FLUSH 0.9% 10 ML SYRINGE IVP PRN (20:40)
[2024-04-12 05:52] LABS: BASOPHILS % (AUTO) 0.4 %; EOSINOPHILS # (AUTO) 0.1 10^3/uL (0.0-0.7); EOSINOPHILS % (AUTO) 1.4 %; HCT - HEMATOCRIT 29.1 % (42.0-52.0); LYMPHOCYTES # (AUTO) 0.4 10^3/uL (1.5-3.5); LYMPHOCYTES % (AUTO) 4.1 %; MEAN CORPUSCULAR HEMOGLOBIN 27.8 pg (27.0-31.0); MEAN CORPUSCULAR HGB CONC 30.9 g/dL (32.0-36.0); MEAN CORPUSCULAR VOLUME 89.8 fL (80.0-94.0); MEAN PLATELET VOLUME 8.4 fL (7.4-11.4); MONOCYTES # (AUTO) 0.8 10^3/uL (0.0-1.0); MONOCYTES % (AUTO) 8.2 %; NEUTROPHILS # (AUTO) 8.6 10^3/uL (1.5-6.6); NEUTROPHILS % (AUTO) 85.2 %; PLT - PLATELET COUNT 468 10^3/uL (130-450); RED BLOOD COUNT 3.24 10^6/uL (4.70-6.10); RED CELL DISTRIBUTION WIDTH 13.7 % (12.0-15.0); WHITE BLOOD COUNT 10.1 x10^3/uL (4.8-10.8)
[2024-04-12] MEDS: PANTOPRAZOLE 40 MG TABLET PO SCH (06:02)
[2024-04-12 06:05] LABS: CALCIUM 8.4 mg/dL (8.5-10.3); CREATININE 0.5 mg/dL (0.6-1.3); POTASSIUM 3.5 mmol/L (3.5-4.5)
[2024-04-12] MEDS: ENOXAPARIN 40 MG/0.4 ML SYRINGE SUBQ SCH (08:49)
[2024-04-12] MEDS ORDERED: NON FORMULARY MED (Omeprazole 40 mg capsule,delayed release(DR/EC)) PO SCH (09:00)
[2024-04-12] MEDS: MULTIVITAMIN W/MINERALS TABLET PO SCH (11:57)
--- NOTE | 2024-04-12 12:48 | PROVIDER PROGRESS NOTE ---
Subjective Prog Note Date Prog Note Date: 04/12/24 Prog Note Time: 12:46 Subjective Subjective: Thinking about wanting to go home. He will be seeing palliative care this afternoon. He definitely is feeling like he wants his approach care to be more palliative. He is not feeling any worse today in fact he feels a bit better. Still very weak. Current Medications Current Medications Current Medications: Current Medications Generic Name Dose Route Start Last Admin Trade Name Freq PRN Reason Stop Dose Admin Acetaminophen 650 mg 04/11/24 14:34 Acetaminophen 325 Mg Tablet PO Q4HR PRN Pain 1 to 4, or Fever Enoxaparin Sodium 40 mg 04/12/24 09:00 04/12/24 08:50 Enoxaparin 40 Mg/0.4 Ml Syringe SUBQ 40 mg DAILY JOSAFAT Administration Heparin Sodium (Beef Lung) 30 - 50 unit 04/11/24 16:22 04/12/24 06:06 Heparin Flush 50 Units/5 Ml Syringe IVP 50 unit PRN PRN Administration Port Protocol (<24 hours) Heparin Sodium (Beef Lung) 300 - 500 unit 04/11/24 16:22 Heparin Flush 500 Units/5 Ml Syringe IVP PRN PRN Port Protocol (>24 hours) Ampicillin Sodium/Sulbactam 100 mls @ 200 mls/hr 04/10/24 18:00 04/12/24 12:35 Sodium 3 gm/ Sodium Chloride IV Infused Q6H JOSAFAT Infusion Mirtazapine 15 mg 04/11/24 21:00 04/11/24 20:34 Mirtazapine 15 Mg Tablet PO 15 mg HS JOSAFAT Administration Multivitamins/Minerals 1 tab 04/12/24 12:00 04/12/24 11:57 Multivitamin W/Minerals Tablet PO 1 tab DAILYWM JOSAFAT Administration Ondansetron HCl 4 mg 04/11/24 14:34 Ondansetron Odt 4 Mg Tablet TL Q6HR PRN Nausea / Vomiting Oxycodone HCl 5 mg 04/11/24 14:34 Oxycodone 5 Mg Tablet PO Q4HR PRN Pain 5 to 7 Pantoprazole Sodium 40 mg 04/12/24 07:00 04/12/24 06:02 Pantoprazole 40 Mg Tablet PO 40 mg QDAC JOSAFAT Administration Sodium Chloride 10 ml 04/11/24 14:34 04/11/24 20:40 Sodium Chloride Flush 0.9% 10 Ml Syringe IVP 10 ml PRN PRN Administration NEEDED PER PROVIDER ORDERS Sodium Chloride 10 ml 04/11/24 17:00 04/12/24 09:09 Sodium Chloride Flush 0.9% 10 Ml Syringe IVP Not Given 0100,0900,1700 [facility] Objective Vital Signs/Intake & Output Reviewed Vital Signs: Yes Vital Signs: Vital Signs x48h Temp Pulse Resp BP Pulse Ox O2 Flow Rate 04/12/24 09:00 37.1 C 71 19 143/73 H 96 0 Intake & Output: Intake & Output 04/09/24 04/10/24 04/11/24 04/12/24 23:59 23:59 23:59 23:59 Intake Total 200 / 200 820 / 820 740 / 740 Output Total 200 / 200 Balance 200 / 200 820 / 820 540 / 540 Weight (kg) 55.52 kg 56.5 kg Objective General Appearance: positive No acute distress, Alert and Other (cachectic) Eyes Bilateral: positive Normal inspection ENT: positive ENT inspection nml and Other (poorly fitting dentures) Neck: positive Nml inspection Respiratory: positive No respiratory distress and Breath sounds nml Cardiovascular: positive Regular rate & rhythm Abdomen: positive No distention Skin: positive Color nml Extremities: positive Non-tender Neurologic/Psychiatric: positive Oriented x3 Lab Results 04/12/24 05:30 04/12/24 05:30 Other Labs: Lab Results x24hrs 04/12/24 Range/Units 05:30 WBC 10.1 (4.8-10.8) x10^3/uL RBC 3.24 L (4.70-6.10) 10^6/uL Hgb 9.0 L (14.0-18.0) g/dL Hct 29.1 L (42.0-52.0) % MCV 89.8 (80.0-94.0) fL MCH 27.8 (27.0-31.0) pg MCHC 30.9 L (32.0-36.0) g/dL RDW 13.7 (12.0-15.0) % Plt Count 468 H (130-450) 10^3/uL MPV 8.4 (7.4-11.4) fL Neut # (Auto) 8.6 H (1.5-6.6) 10^3/uL Lymph # (Auto) 0.4 L (1.5-3.5) 10^3/uL [place] # (Auto) 0.8 (0.0-1.0) 10^3/uL Eos # (Auto) 0.1 (0.0-0.7) 10^3/uL Baso # (Auto) 0.0 (0.0-0.1) 10^3/uL Absolute Nucleated RBC 0.00 x10^3/uL Nucleated RBC % 0.0 /100WBC Sodium 138 (135-145) mmol/L Potassium 3.5 (3.5-4.5) mmol/L Chloride 105 (101-111) mmol/L Carbon Dioxide 29 (21-32) mmol/L Anion Gap 4.0 L (6-13) BUN 17 (6-20) mg/dL Creatinine 0.5 L (0.6-1.3) mg/dL Estimated GFR (MDRD) 157 (>89) Glucose 97 (74-104) mg/dL Calcium 8.4 L (8.5-10.3) mg/dL Magnesium 2.0 (1.7-2.3) mg/dL Assessment/Plan Problem List (1) Abscess of lung with pneumonia: Impression: New right lower lobe lung mass. on unasyn. The appearance of this is infection, although could certainly be cancer. Interventional radiology has been consulted, and state there is no indication for drainage of the fluid. recommend antibiotics only. His leukocytosis has improved since institution of antibiotics. Discussed with Dr Alexandra yesterday, and he recommends against intervention, when looking at the patient overall. risks clearly outweigh benefits that would be gained by intervention Palliative care will see this patient this afternoon. he is thinking that he is done getting treatment for his cancer. However, is leaning towards discharge from the hospital, then transitioning onto comfort/hospice care. May discharge to home this evening if able to complete palliative care discussions. Palliative care was able to see the patient this afternoon. He is requiring significant resources for his care. At this point he is unable to ambulate unassisted. Due to these needed things, he will likely need to transition from here as an inpatient onto his hospice benefit to be able to get home. I spoke with Alis Orantes this afternoon we will need to obtain equipment and social work consultation to get the patient what he needs to go home. I will repeat CBC in the AM. Qualifiers: Laterality: right Lung location: middle lobe of lung Qualified Code(s): J85.1 - Abscess of lung with pneumonia (2) Severe protein-calorie malnutrition: Impression: significant weight loss in the last year or so. On Remeron for appetite. (3) Prostate cancer: Impression: not currently active. given his palliative care status, will not follow. 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 (5) Hypertension: Impression: not currently on meds. with the amount of weight lost in the last year, this may no longer be an issue. 04/12/24 04:06 04/12/24 09:00 04/12/24 13:00 Blood Pressure [Right Brachial artery] 115/66 143/73 H 111/62 04/12/24 15:37 Blood Pressure [Right Brachial artery] 109/64 Qualifiers: Hypertension type: unspecified Qualified Code(s): I10 - Essential (primary) hypertension (6) GERD (gastroesophageal reflux disease): Impression: Omeprazole continued. denies dyspepsia I have spent 52minutes in the care of this patient today. This includes time [id number], review and ordering of diagnostic imaging and laboratory studies and consultation with other providers.. Qualifiers: Esophagitis presence: esophagitis presence not specified Qualified Code(s): K21.9 - Gastro-esophageal reflux disease without esophagitis
--- NOTE | 2024-04-12 17:41 | Palliative Care ---
Vitals Vital Signs 04/10/24 12:05 04/10/24 14:00 04/10/24 14:30 04/10/24 15:30 04/10/24 19:00 04/10/24 23:00 04/11/24 01:00 04/11/24 03:00 04/11/24 05:00 04/11/24 07:00 04/11/24 09:00 04/11/24 11:00 04/11/24 13:00 04/11/24 14:05 04/11/24 15:43 04/11/24 20:06 04/11/24 23:27 04/12/24 04:06 04/12/24 09:00 04/12/24 13:00 04/12/24 15:37 04/12/24 17:54 Height 6 ft 6 ft 6 in 6 ft 6 in Weight 122 lb 6.4 oz 124 lb 8.979 oz 124 lb 8.979 oz BMI 14.4 BP 129/62 123/67 113/73 101/67 118/71 100/59 L 100/59 L 105/55 L 105/55 L 138/96 H 101/56 L 105/57 L 121/64 125/73 109/65 120/71 115/66 143/73 H 111/62 109/64 Respiration 24 18 18 20 21 16 18 16 18 20 20 20 20 20 24 22 22 19 24 20 Pulse 98 97 91 86 72 85 68 66 86 76 67 64 92 88 82 69 73 71 8 6 77 Temp 98.6 F 98.8 F 96.6 F L 97.9 F 97.9 F 97.9 F 97.9 F 98.8 F 97.9 F 97.9 F Temp Source Oral Temporal Artery Scan Temporal Artery Scan Tempora l Artery Scan Temporal Artery Scan Temporal Artery Scan Temporal Artery Scan Temporal Artery Scan Temporal Artery Scan Temporal Artery Scan Pulse Oximetry 97 99 99 98 98 95 99 97 96 97 95 100 98 98 97 96 96 96 98 97 Meds/Allgy Home Medications Ambulatory Orders Medication Instructions Recorded Confirmed omeprazole 40 mg capsule,delayed 40 mg PO DAILY 01/04/24 04/10/24 release mirtazapine 15 mg tablet 15 mg PO HS 04/05/24 04/10/24 levofloxacin 750 mg tablet 750 mg PO QDAY #30 tabs 04/09/24 Allergies Allergies Allergy/AdvReac Type Severity Reaction Status Date / Time terbinafine (From Lamisil) Allergy Unknown Verified 04/10/24 12:05 CC HPI Chief Complaint Chief Complaint: Goals of care; frailty, weakness; pneumonia; lung abcess; Lung ca History Obtained From Records Reviewed: CT scan; previous notes; oncology notes; surgeon consult;hospital notes; History obtained from: patient Exam Limitations: mild STM History of Present Illness HPI: This is a jessica 89 year-old frail, elderly gentleman with stage IV squamous cell carcinoma of the lung, was receiving Keytruda, who also completed 15 treatments of radiation for consolidation of abdominal mass. Jay had a recent PET scan in follow up for effectiveness of treatment and reviewed with oncologist recently last few weeks. Left cardiophrenic mass did decrease, but does show increased right hilar and pleural nodules suspicious for mets. Patient called last week with increasing fatigue and shortness of breath, had refused to come in for evaluation for ED for over a week. He had had decline in functional status due to weakness and using a cane. He has had continuous weight loss over the last 6 to 8 weeks, has not had any fever or chills, nausea or vomiting. Did have patient get a CT scan 04/09 after speaking to oncologist and expressed my concern has been on long-term Keytruda, could have pneumonitis, or certainly is quite frail also a candidate for pneumonia despite no constitutional symptoms. Patient's disease had showed stable mediastinal mucosal thickening and postradiation fibrosis in the left which is his side of cancer. But he has in the meantime developed pneumonia atelectasis and a pulmonary abscess in the right middle lobe, measuring 3.3 cm. He had recently been treated with radiation to left upper quadrant peritoneal necrotic mass which is no longer present according to the scan. Had followed up with oncologist, recommending acute follow-up with headmaster/mistress, IV antibiotics at the least, and hospitalization. Patient's goals have been fairly focused on comfort, and has been quite reluctant for acute interventions, did have a conversation with both hospitalist and Radiologist. Had family meeting with patient, and daughter 04/10. Patients previous expressed goals of care and our conversations have been transitioning to comfort focus and was considering quitting treatment. Had recommended given ED boarding times, to go to [facility], [facility] with the understanding he most likely would need to board and wait for admit. He did not want to pursue higher level of care, and goal was to treat with antibiotics and get evaluation for other recommendations. Did receive antibiotics thus far with improvement of white count, patient feeling better though is still quite weak and frail, concern for ongoing risk of falls, and did receive consult from Dr. Alexandra with recommendations to consider focus on comfort as well and not intervention plan unless patient worsened. 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 Hx of prostate cancer, in 2004 with relapse and salvage radiation in the prostate and limited lymph nodes completed 10/06/2019, as well as finished ADT 02/2020. Had been on surveillance, did have progression of disease under the left hemidiaphragm, that showed squamous cell carcinoma on biopsy. He was then diagnosed with recurrence now stage IV disease. Goal is palliation. Jay is a fair historian and answers questions appropriately. He does have some short-term memory loss. Palliative Care Performance Status Performance status: Patient has had declining functional status, with poor fatigue, shortness of breath, and using cane. Patient has had many near misses at home. Patient is still quite weak, has been mostly bedbound since he has been here, expressed significant concern of patient's fall risk at home, as she is quite frail herself. Palliative Care Discussion: Met with , daughter, and patient for family meeting regarding transition to hospice. Patient does understand that he had pneumonia, he has an abscess or possibly further disease per surgeon, either one he would not be an ongoing candidate for immunotherapy. Patient has been toying with quitting anyway, patient has always been pragmatic, and is very much wanting to go home. Counseling provided regarding the continuum of care and hospice support, family is in agreement this would be appropriate though is expressing she is not going to be able to take care of him at home. They do have a long-term care insurance, patient very much wants to be at home, but she is quite frail herself, would not be able to help him or if he were to have a fall. She would very much in the bigger picture like to have him placed, we discussed that the forensic social worker may be able to help them with looking into long-term plan, short- term plan patient is to go home. Patient does overestimate his abilities, though is feeling better with the ongoing treatment of antibiotics, may be okay short-term. Discussed the goal would be to focus on comfort, not return back to the hospital, introduced the concept of the hospice team, with frequent visits, they are not 24/7 care but available for support by phone. is expressing appropriate concerns regarding ability to take care of him. We did discuss and I invited the daughter to at least be able to participate and provide support over the weekend, is visibly distressed at having a hospital bed, or him needing care at home. Patient is expressing he wants to be at home and does recognize he has some issues as far as needing care but appears to be over estimating what is possible for him right now. [facility] Medical History Medical History (Updated 04/11/24 @ 15:05 by ADRIANO Steve) Fall Fracture of nasal bone Abrasion of knee, left Hyperlipidemia Prostate cancer Acute urinary retention Surgical History Surgical History History of fundoplication H/O prostatectomy Social History Social History (Updated 04/05/24 @ 19:04 by ANGELES Keene) Smoking Status: Former smoker If you are a former smoker, when did you quit? (Date/Year): 1978 Number of Years Smoked: 30 How many cigarettes a day do you smoke? (20 cigarettes=1 Pk): 30 Second hand tobacco smoke exposure: Yes Do you dip or chew tobacco?: No Do you vape?: No Living arrangement: At home Marital Status: Single Living Condition: With spouse/s.o. Support Person: Yes Relationship: Living Situation Details: Lives with spouse Jill Physical Activity: None Level: Assisted Home Mobility Equipment: Cane Do you feel safe in your home environment?: Yes Suffered physical, verbal, emotional, or financial abuse?: No History of Abuse: No ETOH Use: None Frequency: Daily Substance Use: denies use Retired: Yes Service: Yes Are you following a diet prescribed by a doctor: No Are you following a special diet: No POLST Patient has POLST: Yes POLST Status: Selected Treatments Review of Systems Constitutional Reports: Fatigue, Changes in appetite or eating habits and Weight loss; Denies: Fever Ears, nose, mouth, and throat Reports: Hearing loss, Nasal discharge and Dry mouth Cardiovascular Denies: swelling of feet/ankles Respiratory Reports: SOB with exertion; Denies: Wheezing or SOB at rest Gastrointestinal Reports: Poor appetite Genitourinary Reports: Urinary frequency Musculoskeletal Reports: Stiffness Integumentary/Breast Reports: Itching and Dryness; Denies: Rash or Sores Neurological Reports: General weakness, Numbness in extremities and Memory problems (patient difficulty with STM and "details" of medications/schedules ) Psychiatric Reports: Depression, Memory loss and Difficulty concentrating; Denies: Anxiety Endocrine Reports: Fatigue Hematologic/Lymphatic Reports: Anemia Allergic/Immunologic Denies: Wheezing Exam Constitutional Patient appears quite frail, cachetic with temporal wasting; UE and LE wasting. Difficulty getting from sitting to standing. HENMT very [place], wears hearing aids; implants quite pronounced with weight loss Eyes conjunctivae normal and no scleral icterus Neck/C-Spine trachea midline Respiratory Patient off oxygen; no respiratory distress; dry cough Cardiovascular regular rhythm noted Gastrointestinal flat Extremities No LE edema Neurology speech normal Difficulty with LE strength; has been mostly bedbound since admission; near fall this am Psychiatry oriented x3, thought process normal, cooperative and affect normal STM with poor recall; able to engage and participate in conversation Skin color pale Impression Impression: This is a jessica 89-year-old gentleman who presents today with pneumonia, as well as identified abscess on recent CT scan. Patient has had declining acute symptoms as far as increased shortness of breath, worsening fatigue, and decline in functional status. Patient has received IV antibiotics, still remains weak, but is feeling better from time of admit. Family meeting regarding goals of care, patient to be discharged with hospice, skilled nursing issues for caregiving will need to be addressed. Palliative care providing support for symptom management, anticipatory guidance, and coordination of care. Assessment & Plan Assessment & Plan (1) Severe protein-calorie malnutrition: Assessment: Patient with significant weight loss over the last several weeks, patient reports early satiety, fatigue, intermittent nausea. Code(s): E43 - Unspecified severe protein-calorie malnutrition Plan: This is most likely multifactorial, patient has been anorexic, originally did respond to mirtazapine remains on it both for sleep and appetite and mood. Would recommend continue mirtazipine, focus on eating for comfort. 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 Code(s): C34.92 - Malignant neoplasm of unspecified part of left bronchus or lung Plan: Reviewed currently patient not a candidate for treatment and with goals of focusing on comfort, will transition to hospice care. (3) Counseling regarding advanced care planning and goals of care: Assessment: Patient has identified and been quite pragmatic in his approach, does perceive himself as 89 and having had a good life. Patient is somewhat overwhelmed with the hospitalization, and his ongoing functional decline. He does want to return home, there does seem to be some friction between he and his as far as what is going to be realistic and be able to be supported in the home setting skilled nursing. Code(s): Z71.89 - Other specified counseling Plan: Family meeting was provided, Counseling provided regarding continuum of care and hospice, introduced to hospice team, discussed equipment needed, very resistant to having hospital bed. Will go ahead and get wheelchair, commode, patient does have a walker at home. He will get a PT/OT evaluation, to see where his current standing is. Patient may improve short-term with treatment of the pneumonia, he is feeling better but still appears quite frail and weak. Call to hospice several times, is able actually to admit tomorrow, they have a nurse scheduled between and 12, equipment will be delivered sometime tomorrow as well. If patient could be discharged prior and will be brought for transition of hospice. (4) Abscess of lung with pneumonia: Assessment: Patient with recent CT scan, revealing pneumonia and abscess of lung. Has been receiving IV antibiotics with some improvement of symptoms. Code(s): J85.1 - Abscess of lung with pneumonia Qualifiers: Laterality: right Lung location: middle lobe of lung Qualified Code(s): J85.1 - Abscess of lung with pneumonia Plan Transition to hospice on discharge from hospital. Medications: Discontinued benzonatate Discontinued Reason: Completed therapy 200 mg PO TID PRN 30 caps 0RF cough prochlorperazine maleate take if ondansetron not effective Discontinued Reason: Completed therapy 10 mg PO Q6H PRN 30 tabs 0RF nausea and vomiting ondansetron HCl Discontinued Reason: Completed therapy 4 mg PO Q6H PRN 30 tabs 0RF nausea and vomiting
[2024-04-12] MEDS: DOCUSATE SODIUM 250 MG CAPSULE PO SCH (20:28)
[2024-04-13 06:10] LABS: BASOPHILS % (AUTO) 0.4 %; EOSINOPHILS # (AUTO) 0.3 10^3/uL (0.0-0.7); EOSINOPHILS % (AUTO) 2.5 %; HCT - HEMATOCRIT 28.9 % (42.0-52.0); HGB - HEMOGLOBIN 8.8 g/dL (14.0-18.0); LYMPHOCYTES # (AUTO) 0.5 10^3/uL (1.5-3.5); LYMPHOCYTES % (AUTO) 4.7 %; MEAN CORPUSCULAR HEMOGLOBIN 27.7 pg (27.0-31.0); MEAN CORPUSCULAR HGB CONC 30.4 g/dL (32.0-36.0); MEAN CORPUSCULAR VOLUME 90.9 fL (80.0-94.0); MEAN PLATELET VOLUME 8.6 fL (7.4-11.4); MONOCYTES # (AUTO) 0.7 10^3/uL (0.0-1.0); MONOCYTES % (AUTO) 7.3 %; NEUTROPHILS # (AUTO) 8.6 10^3/uL (1.5-6.6); NEUTROPHILS % (AUTO) 84.3 %; PLT - PLATELET COUNT 486 10^3/uL (130-450); RED BLOOD COUNT 3.18 10^6/uL (4.70-6.10); RED CELL DISTRIBUTION WIDTH 13.7 % (12.0-15.0); WHITE BLOOD COUNT 10.2 x10^3/uL (4.8-10.8)
[2024-04-13 06:18] LABS: CALCIUM 8.3 mg/dL (8.5-10.3); CREATININE 0.5 mg/dL (0.6-1.3); POTASSIUM 3.5 mmol/L (3.5-4.5)
[2024-04-13] MEDS ORDERED: polyethylene glycoL 3350 17 GM PACKET PO SCH (09:00)
--- NOTE | 2024-04-13 09:00 | Discharge Summary ---
"Discharge Summary Admit Date: 04/11/24 Discharge Date: 04/13/24 Discharging Provider: Nerissa Page PA-C Primary Care Provider: Mehnaz Guajardo MD Code Status: Do Not Attempt Resuscitation DIAGNOSES Discharge Diagnoses with Status of Each Condition: Right lung abscess with pneumonia, treated Severe protein calorie malnutrition History of prostate cancer Stage IV squamous cell carcinoma of the left lung, entering hospice History of hypertension, resolved History of GERD HPI History of Present Illness: 89-year-old gentleman who presents to the emergency department complaining of shortness of breath. 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 Presented to the emergency department with increasing shortness of air after having had an outpatient lung CT and response to the symptoms. CT showed a right lung abscess. Findings of the CT were discussed with interventional radiology and the determination was made that this patient does not need interventional drainage just IV antibiotics. Attempt was made a direct admission but unfortunately there have not been hospital beds available and the patient has been sitting in the emergency department for about a day. He has been stable, he has not required any supplemental oxygen he has not had any tachycardia he has not run any fevers. CONSULTS | PROCEDURES Procedures: chest CT: 1. Stable periaortic mediastinal mucosal thickening and postradiation paramediastinal fibrosis in the medial left hemithorax.. 2. Development of pneumonia, atelectasis, and pulmonary abscess in the anterior basal segment of the right middle lobe. 3. There is also a small associated right pleural effusion. 4. An anterior left upper quadrant peritoneal necrotic mass on the previous study is no longer present. HOSPITAL COURSE Hospital Course: (1) Abscess of lung with pneumonia: New right lower lobe lung mass. on unasyn. The appearance of this is infection, although could certainly be cancer. Interventional radiology has been consulted, and state there is no indication for drainage of the fluid. recommend antibiotics only. His leukocytosis has improved since institution of antibiotics. Discussed with Dr Alexandra, and he recommends against intervention, when looking at the patient overall. risks clearly outweigh benefits that would be gained by intervention Palliative care was able to see the patient. He is requiring significant resources for his care. At this point he is unable to ambulate unassisted. Due to these needed things, he will likely need to transition from here as an inpatient onto his hospice benefit to be able to get home. I spoke with Alis Orantes. We have been able to arrange transport home and admission to hospice promptly. (2) Severe protein-calorie malnutrition: significant weight loss in the last year or so. On Remeron for appetite. (3) Prostate cancer: Impression: not currently active. given his palliative care status, will not follow. (4) Stage IV squamous cell carcinoma of left lung: Considering cessation of treatment. (5) Hypertension: not currently on meds. with the amount of weight lost in the last year, this may no longer be an issue. 04/12/2503:06 04/12/2508:00 04/12/2512:00 Blood Pressure [Right Brachial artery] 115/66 143/73 H 111/62 04/12/2514:37 Blood Pressure [Right Brachial artery] 109/64 (6)GERD: no dyspepsia, Omeprazole continued. ALLERGIES Allergies Allergy/AdvReac Type Severity Reaction Status Date / Time terbinafine (From Lamisil) Allergy Unknown Verified 04/10/24 12:05 MEDICATIONS Ambulatory Orders Medication Instructions Recorded Confirmed omeprazole 40 mg capsule,delayed 40 mg PO DAILY 01/04/24 04/10/24 release mirtazapine 15 mg tablet 15 mg PO HS 04/05/24 04/10/24 levofloxacin 750 mg tablet 750 mg PO QDAY #30 tabs 04/09/24 PHYSICAL EXAM AT DISCHARGE Physical Exam Other/Comments: General Appearance: positive No acute distress, Alert and Other (cachectic) Eyes Bilateral: positive Normal inspection ENT: positive ENT inspection nml and Other (poorly fitting dentures) Neck: positive Nml inspection Respiratory: positive No respiratory distress and Breath sounds nml Cardiovascular: positive Regular rate & rhythm Abdomen: positive No distention Skin: positive Color nml Extremities: positive Non-tender Neurologic/Psychiatric: positive Oriented x3 LABS 04/13/24 05:35 04/13/24 05:35 FOLLOW UP Follow Up: Will be admitted to Hospice. All care going forward per Hospice medical psychotherapist. TIME SPENT Time Spent in Discharge (Minutes): 45 Discharge Plan Discharge Patient Disposition: 50 Hospice/Home DC/Xfer Condition: Stable Medically Cleared Date:: 04/13/24 Prescriptions: Continued omeprazole 40 mg capsule,delayed release(DR/EC) 40 mg PO DAILY Patient Comments: in the AM mirtazapine 15 mg tablet 15 mg PO HS levofloxacin 750 mg tablet 750 mg PO QDAY Qty: 30 5RF Activity Restrictions: Activity as Tolerated Diet: Regular Health Concerns: You have a history of lung cancer and have a recent change in your status and that you are weak, tired, not feeling well with no appetite. You are followed by palliative care medicine and a evaluation was done. Part of the evaluation was a CAT scan of the chest. The CAT scan shows a new right lower lobe lung mass that we think is cancer. We also think that there may be infection surrounding this area. You were brought into the hospital to be treated with IV antibiotics. You have discussed the finding with not only your palliative care provider, JEN Golden, but you also discussed it with Dr. Alexandra. You have come to the conclusion that you would rather seek comfort and alleviation of symptoms then seek treatment with biopsy, chemotherapy, radiation, etc. As such you are being transitioned to hospice care. Now that you will be in hospice, your primary care provider will be the medical psychotherapist Kristie Zuluaga MD. All of your medications will be ordered through the hospice medical psychotherapist. At this time I am not changing any of your medications and he will go home on the same medications you were admitted on. That includes the Levaquin that you already have a prescription for. If you develop more symptoms of discomfort such as pain, nausea, anxiety, shortness of breath, headache, etc. the medical psychotherapist and hospice nurses will provide those medications to you and your family. Let me expressed that our entire [facility] team offers its sadness that you have to go through this experience. The providers and the nurses are honored that we were able to take care of you for the short time we had you in our facility. Care Plan Goals: Comfort. to be able to enjoy the people that you love. Assessment: you are becoming more weak, and hospice should be able to direct some of your care, but you are going to need help meeting all of your care needs. Plan of Treatment: Continue Levaquin indefinitely. Print Language: German Patient Instructions: Cancer Lung Follow-up Care: Mehnaz Zuluaga MD [Provider Admit Priv/Credential] -"
[2024-04-13 09:15] VITALS: BP 109/59; TEMP 97.7; O2SAT 97
--- NOTE | 2024-04-13 09:16 | Palliative Care ---
Vitals Vital Signs 04/10/24 12:05 04/10/24 14:00 04/10/24 14:30 04/10/24 15:30 04/10/24 19:00 04/10/24 23:00 04/11/24 01:00 04/11/24 03:00 04/11/24 05:00 04/11/24 07:00 04/11/24 09:00 04/11/24 11:00 04/11/24 13:00 04/11/24 14:05 04/11/24 15:43 04/11/24 20:06 04/11/24 23:27 04/12/24 04:06 04/12/24 09:00 04/12/24 13:00 04/12/24 15:37 04/12/24 17:54 04/12/24 21:00 04/13/24 00:10 04/13/24 09:15 04/13/24 09:16 Height 6 ft 6 ft 6 in 6 ft 6 in 6 ft 6 in Weight 122 lb 6.4 oz 124 lb 8.979 oz 124 lb 8.979 oz 12 4 lb 8.979 oz BMI 14.4 14.4 BP 129/62 123/67 113/73 101/67 118/71 100/59 L 100/59 L 105/55 L 105/55 L 138/96 H 101/56 L 105/57 L 121/64 125/73 109/65 120/71 115/66 143/73 H 111/62 109/64 118/70 116/67 109/59 L Respiration 24 18 18 20 21 16 18 16 18 20 20 20 20 20 24 22 22 19 24 20 24 20 20 Pulse 98 97 91 86 72 85 68 66 86 76 67 64 92 88 82 69 73 71 8 6 77 85 65 72 Temp 98.6 F 98.8 F 96.6 F L 97.9 F 97.9 F 97.9 F 97.9 F 98.8 F 97.9 F 97.9 F 97.9 F 98.1 F 97.7 F Temp Source Oral Temporal Artery Scan Temporal Artery Scan Tempora l Artery Scan Temporal Artery Scan Temporal Artery Scan Temporal Artery Scan Temporal Artery Scan Temporal Artery Scan Temporal Artery Scan Temporal Arter y Scan Temporal Artery Scan Temporal Artery Scan Pulse Oximetry 97 99 99 98 98 95 99 97 96 97 95 100 98 98 97 96 96 96 98 97 96 95 97 Meds/Allgy Home Medications Ambulatory Orders Medication Instructions Recorded Confirmed omeprazole 40 mg capsule,delayed 40 mg PO DAILY 01/04/24 04/10/24 release mirtazapine 15 mg tablet 15 mg PO HS 04/05/24 04/10/24 levofloxacin 750 mg tablet 750 mg PO QDAY #30 tabs 04/09/24 Allergies Allergies Allergy/AdvReac Type Severity Reaction Status Date / Time terbinafine (From Lamisil) Allergy Unknown Verified 04/10/24 12:05 CC HPI Chief Complaint Chief Complaint: Goals of care; frailty, weakness; pneumonia; lung abcess; Lung ca History Obtained From Records Reviewed: CT scan; previous notes; oncology notes; surgeon consult;hospital notes; History obtained from: patient Exam Limitations: mild STM History of Present Illness HPI: Please see HPI from yesterday. Patient remains frail, very weak, but able to transfer to chair, reports shortness of breath is better, no cough. Patient sitting up eating, we discussed hospice able to admit today, patient thankful for support, aware remains nervous and anxious. . Palliative Care Performance Status Performance status: Patient has had declining functional status, with poor fatigue, shortness of breath, and using cane. Patient has had many near misses at home. Patient is still quite weak, has been mostly bedbound since he has been here, expressed significant concern of patient's fall risk at home, as she is quite frail herself. Palliative Care Discussion: Reviewed again patient's questions, revisited the continuum of care and hospice. Patient is feeling good about the plan, does understand that he most likely has weeks to months. He does have a son, recommended he have him come down sooner than later. Patient is hopeful to have some time in recovery and get stronger, but does understand most likely is going to continue to decline. Patient denies any fear of dying, is curious about the next steps. Discussed transitioning to hospice with comfort focused care, updated POLST with DNR/DNI and comfort focused care. Copy provided for records and patient instructed to take home to replace previous POLST. Did speak with Jill on the phone, regarding plan for hospice nurse to meet them at 11, she will, or her daughter come to pick him up at 930 recognizing there may be some time delay in getting discharged depending on staffing. . PFSH Medical History Medical History (Updated 04/11/24 @ 15:05 by ADRIANO Steve) Fall Fracture of nasal bone Abrasion of knee, left Hyperlipidemia Prostate cancer Acute urinary retention Surgical History Surgical History History of fundoplication H/O prostatectomy Social History Social History (Updated 04/05/24 @ 19:04 by ANGELES Keene) Smoking Status: Former smoker If you are a former smoker, when did you quit? (Date/Year): 1978 Number of Years Smoked: 30 How many cigarettes a day do you smoke? (20 cigarettes=1 Pk): 30 Second hand tobacco smoke exposure: Yes Do you dip or chew tobacco?: No Do you vape?: No Living arrangement: At home Marital Status: Single Living Condition: With spouse/s.o. Support Person: Yes Relationship: Living Situation Details: Lives with spouse Jill Physical Activity: None Level: Assisted Home Mobility Equipment: Cane Do you feel safe in your home environment?: Yes Suffered physical, verbal, emotional, or financial abuse?: No History of Abuse: No ETOH Use: None Frequency: Daily Substance Use: denies use Retired: Yes Service: Yes Are you following a diet prescribed by a doctor: No Are you following a special diet: No POLST Patient has POLST: Yes POLST Status: Selected Treatments Impression Impression: This is a jessica 89-year-old gentleman who presents today with pneumonia, as well as identified abscess on recent CT scan. Patient has had declining acute symptoms as far as increased shortness of breath, worsening fatigue, and decline in functional status. Patient has received IV antibiotics, still remains weak, but is feeling better from time of admit. As result of family meeting, plan to transition to hospice, with admit planned today. Palliative care providing support for symptom management, anticipatory guidance, and coordination of care. Assessment & Plan Assessment & Plan (1) Severe protein-calorie malnutrition: Assessment: Patient with significant weight loss over the last several weeks, patient report s early satiety, fatigue, intermittent nausea. Code(s): E43 - Unspecified severe protein-calorie malnutrition Plan: This is most likely multifactorial, patient has been anorexic, originally did respond to mirtazapine remains on it both for sleep and appetite and mood. Would recommend continue mirtazipine, focus on eating for comfort. 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 Code(s): C34.92 - Malignant neoplasm of unspecified part of left bronchus or lung Plan: Reviewed currently patient not a candidate for treatment and with goals of focusing on comfort, will transition to hospice care. (3) Counseling regarding advanced care planning and goals of care: Assessment: Reviewed with patient that plan was able to come together for hospice support at home, will have earlier discharge than expected. Patient does have Levaquin prescription at [facility], encouraged to excelsior picker. This information was shared with hospice. Code(s): Z71.89 - Other specified counseling Plan: Counseling with patient regarding reinforcing information regarding hospice hospice team, goals of care, completed POLST with DNR and comfort measures. Discussed anticipatory guidance regarding prognosis and expected decline. (4) Abscess of lung with pneumonia: Assessment: Patient with recent CT scan, revealing pneumonia and abscess of lung. Has been receiving IV antibiotics with some improvement of symptoms. Code(s): J85.1 - Abscess of lung with pneumonia Plan: Will receive 5 days of levaquin at home Qualifiers: Laterality: right Lung location: middle lobe of lung Qualified Code(s): J85.1 - Abscess of lung with pneumonia Plan Transition to hospice on discharge from hospital. Medications: Discontinued benzonatate Discontinued Reason: Completed therapy 200 mg PO TID PRN 30 caps 0RF cough prochlorperazine maleate take if ondansetron not effective Discontinued Reason: Completed therapy 10 mg PO Q6H PRN 30 tabs 0RF nausea and vomiting ondansetron HCl Discontinued Reason: Completed therapy 4 mg PO Q6H PRN 30 tabs 0RF nausea and vomiting
== END 2024-04-13 10:20 | disposition hospice, home (50) | DRG 177 ==
LOC: MS2 11:20 → ED 11:20 → MS2 04-11 14:05
PROVIDERS: ADMIT Physician Assistant Medical; ATTEND Physician Assistant Medical